=== PATIENT | female | born 2000 | race Caucasian/White ===

== ENCOUNTER 2019-06-18 18:45 | Emergency (ER) | payer MEDICAID, SELFPAY ==
[2019-06-18 18:46] VITALS: BP 159/88; PULSE 123; RESP 18; TEMP 36.7; O2SAT 98; BMI 20.5
--- NOTE | 2019-06-18 22:25 | ED_ITS ---
Entered by Krystal Schmidt, acting as scribe for Laure Fowler aDniela Jun 18, 2019 18:45 HPI - Abdominal Pain General: Chief Complaint: Abdominal Pain Stated Complaint: lower abd pain Time Seen by Provider: 06/18/19 22:09 Source: patient and family Mode of arrival: ambulatory History of Present Illness: HPI narrative: 19 y/o female presents to the ED with complaint of abd pain. She has had constant pain for about a week. She was seen by her PCP and was placed on abx. Her symptoms have not improved so her PCP sent her here for a CT. MD elicited complaint: abdominal pain Onset (ago): week(s) (1) Pain Consistency: constant Severity: moderate Associated Symptoms: Reports other (see HPI); Denies chills, dysuria, fever(s), hematuria and syncope Related Data: Date of Last Menstrual Period: 06/17/19 Review of Systems Const: Denies: fever, chills, body aches, fatigue, malaise or diaphoresis Eyes: Denies: change in vision or blurry vision ENMT: Denies: throat pain, painful swallowing, hoarseness, ear pain, ear discharge, Change in hearing or nasal discharge Card: Denies: chest pain, palpitations, irregular heart rhythm, syncope, pre- syncope, shortness of breath on exertion or shortness of breath when lying down Resp: Denies: shortness of breath, productive cough, non-productive cough, wheezing, coughing up blood or chest congestion GI: Reports: other (see HPI) : Denies: flank pain, painful urination, urinary frequency, urinary urgency, decreased urine ouput, urinary incontinence or blood in urine Musc: Denies: neck pain, back pain, extremity pain, extremity swelling, joint pain, joint swelling, joint warmth or joint stiffness Skin/Breast: Denies: rash, skin tenderness or yellow skin Neuro: Denies: headache, numbness in extremities, weakness in extremities, changes in sensation, lack of coordination, difficulty walking, dizziness, vertigo or confusion Endo: Denies: excessive thirst, tired all the time, cold intolerance, excessive sweating, flushing or hot flashes Samy/Lymph: Denies: easy bruising, easy bleeding, petechiae or enlarged lymph nodes All/Imm: Denies: hives, throat swelling, tongue swelling, facial swelling or acute wheezing PFSH ED PFSH: Statuses (acute, chronic, etc) shown below reflect problem list status as previously entered and may not be historically accurate Social History Smoking and tobacco status: current every day smoker Female Reproductive History: Date of last menstrual period: 06/17/19 Physical Exam Const: COMMON NORMALS: no apparent distress, oriented x3, no limitations, healthy appearing and well nourished EXAM LIMITATIONS: no altered mental status GENERAL APPEARANCE: cooperative, well kempt and well developed ORIENTATION/CONSCIOUSNESS: Yes awake HENMT: COMMON NORMALS: normocephalic, head/scalp atraumatic, hearing grossly normal bilaterally, external ears normal, EAC's normal, external nose normal and moist oral mucous membranes HEAD & SCALP: normal to inspection, normocephalic and atraumatic FACE & SINUS: normal facial exam and face symmetric NOSE: external nose normal and nares normal EXTERNAL EAR: Yes external ears normal EXTERNAL AUDITORY CANAL: EAC's normal MOUTH: oral and palatal mucosa normal and tongue normal Eye: COMMON NORMALS: PERRL, EOMs intact bilaterally, conjunctivae normal and no scleral icterus GENERAL EYE: normal appearance of both eyes and normal light reflex CONJUNCTIVA: Yes conjunctivae normal SCLERA: sclerae normal CORNEA: Yes corneas normal PUPIL: Yes PERRL DIRECT OPHTHALMOSCOPY: Yes normal light reflex Neck/C-Spine: COMMON NORMALS: full ROM, no lymphadenopathy, supple, no meningeal signs and no JVD GENERAL: Yes normal visual inspection and Yes trachea midline CERVICAL SPINE: Yes cervical ROM normal Chest: COMMONS NORMALS: inspection of chest normal and palpation of chest normal Resp: COMMON NORMALS: normal respiratory effort, no retractions, no use of accessory muscles and clear to auscultation bilaterally EFFORT & INSPECTION: Yes able to speak in complete sentences AUSCULTATION: clear to auscultation bilaterally Cardio: COMMON NORMALS: no JVD, regular rate, regular rhythm, S1 normal heart sound, S2 normal heart sound, no gallops, no clicks, no murmurs and no rub JUGULAR VENOUS DISTENTION: no JVD RATE: regular rate RHYTHM: regular rhythm HEART SOUNDS: S1 normal and S2 normal GI: COMMON NORMALS: normal to inspection, nondistended, normoactive bowel sounds, soft to palpation and non-tender PALPATION: Yes soft : COMMON NORMALS: Yes no CVA tenderness BLADDER/KIDNEY EXAM: Yes no CVA tenderness Back/Pelvis: COMMON NORMALS: no CVA tenderness, thoracic and lumbar spine normal to inspection, no thoracic nor lumbar tenderness and thoraco-lumbar ROM normal Extremity: COMMON NORMALS: normal to inspection, full ROM, normal capillary refill, no joint enlargement, no clubbing, cyanosis or edema and no calf tenderness Neuro: COMMON NORMALS: oriented x3, CN's II-XII intact bilaterally, moves all extremities, no focal motor deficits and no sensory deficits noted MENINGEAL SIGNS: Yes no meningeal signs Psych: COMMON NORMALS: mental status grossly normal, thought process normal, cooperative, affect normal, speech normal and activity/motor behavior normal APPEARANCE: Yes well kempt SPEECH: Yes normal speech THOUGHT PROCESS: normal thought process Skin: COMMON NORMALS: no rashes or lesions noted, skin turgor normal, no jaundice, no petechiae and no mottling GENERAL SKIN EXAM: no rashes or lesions noted and turgor normal Course Vital Signs: Vital signs: Vital Signs Temperature 98.3 F 06/19/19 02:12 Pulse Rate 82 06/19/19 02:12 Respiratory Rate 19 H 06/19/19 02:12 Blood Pressure 126/99 06/19/19 02:12 Pulse Oximetry 98 06/19/19 02:12 MDM - Abdominal Pain MDM Narrative: Medical decision making narrative: The patient is feeling better and is ready to go home. She is relieved to hear there is no acute findings on her CT. She does agree to return should her symptoms change or worsen and she will take the antibiotics as prescribed for possible UTI as her symptoms sound most like that. I see no sign of acute sinusitis, obstruction or any other acute catastrophe of the abdomen. The patient understands and agrees though to return should her symptoms worsen. Differential Diagnosis: Differential diagnosis abdominal pain: Likely abdominal pain, acute appendicitis, calculus of kidney, constipation, diverticulitis, endometriosis, gastroenteritis, pancreatitis and small bowel obstruction Lab Data: Attestation: I reviewed the patient's lab results. Labs: Lab Results 06/18/19 06/18/19 06/18/19 Range/Units 20:30 23:00 23:30 WBC 10.4 (4.5-13.0) 10^3/ uL RBC 4.46 (4.1-5.3) 10^6/u L Hgb 14.1 (11.5-15.3) g/dL Hct 41.0 (37.0-47.0) % MCV 91.9 (81-99) fL MCH 31.6 (28.0-34.0) pg MCHC 34.4 (30.0-36.0) g/dL RDW 11.9 L (12.1-15.1) % Plt Count 238 (130-400) 10^3/c mm MPV 10.6 H (7.4-10.4) fL Neut % (Auto) 49.6 % Lymph % (Auto) 41.0 % Calhoun % (Auto) 6.3 % Eos % (Auto) 2.2 % Baso % (Auto) 0.6 % Neut # (Auto) 5.2 (1.8-8.0) 10^3/u L Lymph # (Auto) 4.3 (1.5-6.5) 10^3/u L Calhoun # (Auto) 0.7 (0.2-0.9) 10^3/u L Eos # (Auto) 0.2 (0.0-0.8) 10^3/u L Baso # (Auto) 0.1 (0.0-0.1) 10^3/u L Nucleated RBC % (a uto) 0 % Nucleated RBCs # 0.0 /100WBC Sodium 140 (136-145) mmol/L Potassium 3.8 (3.5-5.1) mmol/L Chloride 103 (98-107) mmol/L Carbon Dioxide 23 (22-29) mmol/L Anion Gap 17.8 (5-19) BUN 12 (6-20) mg/dL Creatinine 0.7 (0.5-0.9) mg/dL GFR Calculation 106.7 (90-130) mL/min Glucose 100 (74-109) mg/dL Calcium 10.3 H (8.6-10.0) mg/Dl Total Bilirubin 0.2 (0.15-1.2) mg/dL AST 15 (0-32) U/L ALT 14 (0-33) U/L Alkaline Phosphata se 59 (35-105) IU/L Total Protein 6.8 (6.6-8.7) g/dL Albumin 4.6 (3.5-5.2) g/dL Globulin 2.2 (1.3-4.6) g/dL Lipase 50 (13-60) U/L Ser , Germaine i-Qnt 0.50 mIU/mL Urine Color Yellow (Yellow) Urine Appearance Sl cloudy A (CLEAR) Urine pH 7 (5-7) Ur Specific Gravit y 1.015 (1.005-1.030) Urine Protein Neg (Negative) Urine Glucose (UA) Norm (Normal) Urine Ketones Negative (Negative) Urine Occult Blood 3+ H (Negative) Urine Nitrate Negative (Negative) Urine Bilirubin Neg (NEGATIVE) Urine Urobilinogen Norm (Negative) mg/dL Ur Leukocyte Georgie ase Negative (Negative) Urine RBC 0-4 H (0-2) /hpf Urine WBC 0-4 H (0-5) /hpf Ur Squamous Epith Cells None (0-5) Urine Bacteria Trace (NONE) Imaging Data ^: CT Abd/Pel: Radiologist's impression: [place] [address] CT Scan Report Signed Patient: Janelle Beard Unit #: [id number] : 2000 Age/Sex: 19 / F ADM Date: 06/18/19 Loc: ER Room/Bed: Attending Dr: Ordering Provider/Ordering MD: Laure Fowler DO Date of Service: 06/18/19 Procedure(s): CT abdomen pelvis wo con [id number] Accession Number(s): [id number] Report Number: [id number] PROCEDURE INFORMATION: Exam: CT Abdomen And Pelvis Without Contrast Exam date and time: 06/18/2019 11:04 PM Age: 19 years old Clinical indication: Abdominal pain; Acute; Prior surgery; Surgery date: 6+ months; Surgery type: Renal stent TECHNIQUE: Imaging protocol: Computed tomography of the abdomen and pelvis without contrast. Total DLP: 489.95 mGy-cm Radiation optimization: All CT scans at this facility use at least one of these dose optimization techniques: automated exposure control; mA and/or kV adjustment per patient size (includes targeted exams where dose is matched to clinical indication); or iterative reconstruction. COMPARISON: CT Abdomen/Pelvis Renal [id number] 01/05/2018 1:41 AM FINDINGS: Lungs: The lung bases are clear. Liver: Unremarkable. Gallbladder and bile ducts: The gallbladder is partially contracted. No visible gallstones by CT. No biliary tree dilation. Pancreas: Unremarkable. Spleen: Unremarkable. Adrenals: Unremarkable. Kidneys and ureters: 3 or 4 very small left intrarenal calculi. Suspect a very small right intrarenal calculus. No hydronephrosis of either kidney. No visible ureteral calculus. No perinephric fluid. Stomach and bowel: The stomach appears somewhat distended at the time of scanning. Please correlate clinically. There are no CT findings to strongly suggest diverticulitis or colitis. Appendix: The appendix is visualized and appears normal. Intraperitoneal space: No free air, ascites, or bowel distention. Vasculature: No evidence for abdominal aortic aneurysm. Lymph nodes: No retroperitoneal adenopathy. Bladder: Unremarkable as visualized. Reproductive: Essentially unremarkable for age. Bones/joints: No significant acute finding. Soft tissues: No significant acute finding. CT/CT abdomen pelvis wo con [id number] IMPRESSION: 1. Bilateral intrarenal calculi. No hydronephrosis or visible ureteral calculus. 2. Normal appendix. 3. Somewhat distended stomach. 4. No free air or bowel distention. 5. Other findings discussed above. Radiation Dose CTDIVOL = (mGy): DLP = 489.95 (mGy-cm) Dictated By: Fernando Mcmanus MD Signed By: Fernando Mcmanus MD Signed Date/Time: 1999 DD/ Discharge Plan Discharge Patient Disposition: Home, Self-Care Clinical Impression: Abdominal pain Qualifiers: Abdominal location: generalized Qualified Code(s): R10.84 - Generalized abdominal pain UTI (urinary tract infection) Qualifiers: Urinary tract infection type: site unspecified Hematuria presence: without hematuria Qualified Code(s): N39.0 - Urinary tract infection, site not specified Condition: Stable Prescriptions: New Cipro 500 mg tablet 500 mg PO BID Qty: 20 RF: 0 No Action ProAir HFA 90 mcg/actuation Hfa Aerosol Inhaler 1 inh INHALATION QID PRN (Reason: Shortness Of Breath) RF: 0 Control PO DAILY RF: 0 Discharge Orders: Discharge Order (Routine); Ordered 06/19/19 Ordered By: Laure Fowler Referrals: Daniel Eden MD [Primary Care Provider] - 1-3 days Discharge Diet: Advance as tolerated Discharge Activity: Increase activity as tolerated Patient Instructions: Abdominal Pain (ED) Activity Restrictions/Additional Instructions: Please return to the ER immediately for any of the signs or symptoms listed on your discharge instruction sheets, worsening/changing of your symptoms, you are not getting better as quickly as expected, or for ANY other cause or concerns. Return to the ER for increased pain, fever, vomiting, or for any other cause for concern. Stand Alone Forms: Work/School Release Discharge Date/Time: 06/19/19 02:14 Coding Level of Care Code ED Warehouse Technician for Chg Fwd Exam Problem Focused The documentation recorded by the shaneibBrayan masters Ashley, accurately reflects the service I personally performed and the decisions made by Janeth palacios Eli N Jun 18, 2019 18:45
--- NOTE | 2019-06-18 23:03 | CTR_ITS ---
PROCEDURE INFORMATION: Exam: CT Abdomen And Pelvis Without Contrast Exam date and time: 06/18/2019 11:04 PM Age: 19 years old Clinical indication: Abdominal pain; Acute; Prior surgery; Surgery date: 6+ months; Surgery type: Renal stent TECHNIQUE: Imaging protocol: Computed tomography of the abdomen and pelvis without contrast. Total DLP: 489.95 mGy-cm Radiation optimization: All CT scans at this facility use at least one of these dose optimization techniques: automated exposure control; mA and/or kV adjustment per patient size (includes targeted exams where dose is matched to clinical indication); or iterative reconstruction. COMPARISON: CT Abdomen/Pelvis Renal [id number] 01/05/2018 1:41 AM FINDINGS: Lungs: The lung bases are clear. Liver: Unremarkable. Gallbladder and bile ducts: The gallbladder is partially contracted. No visible gallstones by CT. No biliary tree dilation. Pancreas: Unremarkable. Spleen: Unremarkable. Adrenals: Unremarkable. Kidneys and ureters: 3 or 4 very small left intrarenal calculi. Suspect a very small right intrarenal calculus. No hydronephrosis of either kidney. No visible ureteral calculus. No perinephric fluid. Stomach and bowel: The stomach appears somewhat distended at the time of scanning. Please correlate clinically. There are no CT findings to strongly suggest diverticulitis or colitis. Appendix: The appendix is visualized and appears normal. Intraperitoneal space: No free air, ascites, or bowel distention. Vasculature: No evidence for abdominal aortic aneurysm. Lymph nodes: No retroperitoneal adenopathy. Bladder: Unremarkable as visualized. Reproductive: Essentially unremarkable for age. Bones/joints: No significant acute finding. Soft tissues: No significant acute finding. CT/CT abdomen pelvis wo con [id number] IMPRESSION: 1. Bilateral intrarenal calculi. No hydronephrosis or visible ureteral calculus. 2. Normal appendix. 3. Somewhat distended stomach. 4. No free air or bowel distention. 5. Other findings discussed above. Radiation Dose CTDIVOL = (mGy): DLP = 489.95 (mGy-cm)
[2019-06-18] MEDS: sodium chloride 0.9% 1,000 ML 999 ML IV (23:30)
[2019-06-18 23:33] LABS: Basophils # 0.1 10^3/uL (0.0-0.1); Basophils % 0.6 %; Eosinophils # 0.2 10^3/uL (0.0-0.8); Eosinophils % 2.2 %; Hemoglobin 14.1 g/dL (11.5-15.3); Lymphocytes # 4.3 10^3/uL (1.5-6.5); Mean Corpuscular HGB Conc 34.4 g/dL (30.0-36.0); Mean Corpuscular Hemoglobin 31.6 pg (28.0-34.0); Mean Corpuscular Volume 91.9 fL (81-99); Mean Platelet Volume 10.6 fL (7.4-10.4); Monocytes # 0.7 10^3/uL (0.2-0.9); Monocytes % 6.3 %; Neutrophils # 5.2 10^3/uL (1.8-8.0); Neutrophils % 49.6 %; Nucleated Red Blood Cells % 0 %; Platelet Count 238 10^3/cmm (130-400); Red Blood Count 4.46 10^6/uL (4.1-5.3); Red Cell Distribution Width 11.9 % (12.1-15.1); White Blood Count 10.4 10^3/uL (4.5-13.0)
[2019-06-18 23:34] LABS: Bilirubin Urine Neg (NEGATIVE); Blood Urine 3+ (Negative); Glucose Urine UA Norm (Normal); Ketones Urine Negative (Negative); Leukocyte Esterase Urine Negative (Negative); Nitrate Urine Negative (Negative); Protein Urine Neg (Negative); RBC Urine 0-4 /hpf (0-2); Specific Gravity, Urine 1.015 (1.005-1.030); Urine Color Yellow (Yellow); Urobilinogen Urine Norm (Negative); WBC Urine 0-4 /hpf (0-5); pH Urine 7 (5-7)
[2019-06-18 23:35] LABS: Add Urine Culture? No; Bacteria Urine TRACE
[2019-06-19 00:04] LABS: Alanine Aminotransferase 14 U/L (0-33); Albumin Level 4.6 g/dL (3.5-5.2); Alkaline Phosphatase 59 IU/L (35-105); Anion Gap 17.8 (5-19); Aspartate Amino Transferase 15 U/L (0-32); Blood Urea Nitrogen 12 mg/dL (6-20); Calcium 10.3 mg/Dl (8.6-10.0); Carbon Dioxide 23 mmol/L (22-29); Chloride 103 mmol/L (98-107); Globulin 2.2 g/dL (1.3-4.6); Glomerular Filtration Rate 106.7 mL/min (90-130); Glucose 100 mg/dL (74-109); Lipase 50 U/L (13-60); Potassium 3.8 mmol/L (3.5-5.1); Sodium 140 mmol/L (136-145); Total Bilirubin 0.2 mg/dL (0.15-1.2); Total Protein 6.8 g/dL (6.6-8.7)
[2019-06-19 02:12] VITALS: BP 126/99; PULSE 82; RESP 19; TEMP 36.8; O2SAT 98
== END 2019-06-19 02:14 | disposition home or self-care (01) ==
PROVIDERS: Emergency Provider Emergency Medicine; Family Provider Family Medicine; PCP Family Medicine
DX: N39.0 Urinary tract infection, site not specified (principal); F17.210 Nicotine dependence, cigarettes, uncomplicated
CPT/HCPCS: 74176; 80053; 81001; 83690; 84702; 85025; 96360; 99281; J7030

== ENCOUNTER 2019-07-03 11:22 | Outpatient (CLI) | payer MEDICAID, SELFPAY ==
--- NOTE | 2019-07-03 | US_ITS ---
WS: [id number] Pelvic ultrasound, 07/03/2019 Clinical Data: PELVIC PAIN IN FEMALE Comparison: None. Findings: The uterus measures 7.0 cm x 3.4 cm x 4.18cm. The endometrium is 2.1 cm. No intrauterine or abnormal intrauterine mass is seen. The cervical length is 2.7 cm. The left ovary measures 1.6 cm x 2.40 cm x 2.49 cm with no cysts or masses. The right ovary measures 3.5 cm x 3.84 cm x 2.77 cm with a simple cyst measuring 1.9 x 2.0 x 2.7 cm. There is a small amount of fluid in the cul-de-sac. US/US pelvic complete* [id number] Impression: Negative pelvic ultrasound.
== END 2019-07-03 11:23 | disposition home or self-care (01) ==
LOC: RADOUTREAD 12:20
PROVIDERS: Family Provider Family Medicine; PCP Family Medicine; Visit Provider Family Medicine
DX: Z76.89 Persons encountering health services in other specified circumstances (principal)

== ENCOUNTER 2020-02-19 14:23 | Emergency (ER) | payer MEDICAID, SELFPAY ==
[2020-02-19 14:25] VITALS: BP 173/100; PULSE 100; RESP 18; TEMP 36.4; O2SAT 98; BMI 23.0
--- NOTE | 2020-02-19 14:33 | W.ED.GENADLT ---
HPI - General Adult General: Chief complaint: General Medical Stated complaint: not feeling well Time Seen by Provider: 02/19/20 14:25 Source: patient Mode of arrival: ambulatory Limitations: no limitations History of Present Illness: HPI narrative: Patient is a 19-year-old female who presents to ED today with a rather confusing history. Patient tells me approximately 3 months ago she began taking Chantix in hopes she could quit smoking. Patient tells me she continued smoking up until approximately 14 days ago. Patient tells me she stopped taking Chantix 3 days ago. She tells me she has had symptoms of anxiety, feeling like her heart is racing, and nausea since starting the Chantix. She tells me she will drink coffee and that seems to settle her down . She complains of decreased sleep. She tells me she will also self medicate with marijuana. Patient states Dr. Eden has her on citalopram for her anxiety. She reports she had been taking this as prescribed but states the Chantix made her think it was a devil pill so began taking it intermittently. Patient on exam has pressured disorganized speech. She often contradicts herself. Patient tells me she does not want any form of work-up today. She refuses lab work, EKG, or imaging. It is hard to pin down her main complaint but ultimately she tells me she wants help for her anxiety. Onset (ago): day(s) Associated symptoms: Reports palpitations; Deny chest pain, confusion, dyspnea, headache(s), malaise, nausea, rash, syncope or vomiting Review of Systems Const: Denies: fever(s), chills, body aches, fatigue or malaise Eyes: Denies: change in vision, blurry vision, photophobia, floaters or seeing flashes ENMT: Denies: throat pain or odynophagia Card: Reports: palpitations; Denies: chest pain, irregular heart rhythm, edema, swelling of feet/ankles, lightheadedness, syncope, pre-syncope, dyspnea on exertion, orthopnea, leg pain with exertion or acrocyanosis Resp: Denies: dyspnea, productive cough, non-productive cough, wheezing, pain on inspiration, hemoptysis or chest congestion GI: Denies: abdominal pain, nausea, vomiting, heartburn or diarrhea : Denies: flank pain, difficulty voiding, dysuria, urinary frequency, urinary urgency or urinary hesitancy Musc: Denies: neck pain, back pain, extremity pain, extremity swelling, joint pain or joint swelling Skin/Breast: Denies: rash Neuro: Denies: headache(s), numbness in extremities, weakness in extremities, sensory changes, lack of coordination, difficulty walking, dizziness, vertigo or confusion Psych: Reports: anxiety; Denies: depression, hopelessness, visual hallucinations, auditory hallucinations, suicidal ideation or homicidal ideation PFS ED PFSH: Medical History (Updated 02/19/20 @ 14:59 by ARIELLE Nielsen) Asthma History of kidney stones Surgical History History of section, low transverse (01/31/17) Dx: Breech. Dr. Joseph at [facility] History of kidney surgery stent for kidney stone Family History Father Hypertension Family/Other Hypertension paternal uncle Grandfather Hypertension paternal Social History Smoking and tobacco status: current every day smoker cigarettes Packs smoked per day: 1 Years cigarettes smoked: 2 Alcohol intake: never Female Reproductive History: Date of last menstrual period: 06/17/19 Physical Exam Const: COMMON NORMALS: no acute distress, average body habitus, patient oriented x3, no limitations, healthy appearing, alert and well nourished ORIENTATION/CONSCIOUSNESS: Yes oriented to person, Yes oriented to place and Yes oriented to time Resp: COMMON NORMALS: normal respiratory effort and clear to auscultation bilaterally AUSCULTATION: clear to auscultation bilaterally Cardio: COMMON NORMALS: regular rate and regular rhythm RATE: regular rate RHYTHM: regular rhythm Neuro: MIGUEL COMA SCALE: document GCS findings Miguel coma scale eye opening: Spontaneous Larue coma scale verbal response: Orientated Larue coma scale motor response: Obey commands Larue coma scale total score: 15 COMMON NORMALS: patient oriented x3 and gait normal SENSORIUM/ORIENTATION: Yes alert, Yes oriented to person, Yes oriented to place and Yes oriented to time Psych: COMMON NORMALS: mental status grossly normal, cooperative, activity/motor behavior normal, denies hallucinations, denies homicidal ideation and denies suicidal ideation APPEARANCE: Yes grossly normal ACTIVITY/MOTOR BEHAVIOR: Yes appropriate eye contact and Yes hyperactivity SPEECH: Yes excessive and Yes Pressured speech present MOOD & AFFECT: Yes euthymic mood THOUGHT PROCESS: disorganized THOUGHT CONTENT: Yes Normal thought content present ATTENTION/CONCENTRATION: Yes attention grossly intact and Yes concentration grossly intact MEMORY/COGNITION: Yes memory grossly intact and Yes cognition grossly intact INSIGHT: Fair insight present (Psych) JUDGEMENT: Fair judgement present (Psych) Skin: COMMON NORMALS: no rashes or lesions noted GENERAL SKIN EXAM: no rashes or lesions noted Course Vital Signs: Vital signs: Vital Signs Temperature 97.5 F L 02/19/20 14:25 Pulse Rate 100 02/19/20 14:25 Respiratory Rate 18 02/19/20 14:25 Blood Pressure 173/100 02/19/20 14:25 Pulse Oximetry 98 02/19/20 14:25 MDM - General Adult MDM Narrative: Medical decision making narrative: Patient again refusing lab work, EKG, CXR, or any other kind of imaging at this time. Patient's vitals are stable apart from hypertension. Patient tells me she has no history of this. She does not want treatment for this. She does not seem concerned about this. I did encourage her to follow-up with Dr. Eden regarding this. I did speak to her about going to [facility] [place] for an intake exam and possibly speaking to a psychiatrist however patient tells me that I am my own psychiatrist and does not wish to pursue this route. She is not suicidal or homicidal. I have no grounds to keep patient on a hold. She is open to trying Vistaril for anxiety. Again recommend she follow-up with primary care as soon as possible. She may also return to the emergency department at any point for re-examination. Discharge Plan Discharge Patient Disposition: Home Clinical Impression: Anxiety Condition: Stable Prescriptions: New Vistaril 50 mg capsule 50 mg PO TID PRN (Reason: anxiety) Qty: 30 RF: 0 No Action Chantix Starting Month Box 0.5 mg (11)- 1 mg (42) tablets,dose pack See Rx Instructions PO PER PKG DIR RF: 0 citalopram 10 mg tablet 10 mg PO DAILY RF: 0 fluconazole 150 mg tablet 150 mg PO DAILY Qty: 1 RF: 0 norethindrone ac-eth estradiol [June06/16 (21)] 1-20 mg-mcg tablet See Rx Instructions PO DAILY Qty: 63 RF: 4 ProAir HFA 90 mcg/actuation Hfa Aerosol Inhaler 1 inh INHALATION QID PRN (Reason: Shortness Of Breath) RF: 0 Discharge Orders: Discharge Order (Routine); Ordered 02/19/20 Ordered By: Daniella Barbour Referrals: Daniel Eden MD [Primary Care Provider] - Patient Instructions: Generalized Anxiety Disorder (ED), Anxiety (ED) Activity Restrictions/Additional Instructions: Please follow up with Dr. Eden as needed. As we discussed, you can go to [facility] [place] for an intake screening exam and they can set you up with outpatient resources such as a counselor, therapist, or psychiatrist. Discharge Date/Time: 02/19/20 15:12 Coding Level of Care Code ED Golf Ball Marker for Chg Fwd Exam Detailed
== END 2020-02-19 15:12 | disposition home or self-care (01) ==
PROVIDERS: Emergency Provider Physician Assistant; PCP Family Medicine
DX: F41.9 Anxiety disorder, unspecified (principal); F17.210 Nicotine dependence, cigarettes, uncomplicated
CPT/HCPCS: 12345; 99281; 99282

== ENCOUNTER 2020-08-24 12:03 | Emergency (ER) | payer MEDICAID, SELFPAY ==
--- NOTE | 2020-08-24 12:10 | ED_ITS ---
HPI - Extremity Problem General: Chief complaint: Skin/Abscess/Foreign Body Stated complaint: KNOT UNDER 2ND TOE ON L FOOT Time Seen by Provider: 08/24/20 12:06 Source: patient Mode of arrival: ambulatory Limitations: no limitations History of Present Illness: HPI Narrative: Patient is a 20-year-old female who presents to ED today with complaint of a painful lesion to the bottom of her left foot that she has noticed over the past week. MD Complaint: extremity pain Pain Consistency: constant Location: left and lower extremity Quality: sharp Radiation: none Relieving factors: immobilization Exacerbating factors: weight bearing Associated symptoms: Reports no associated symptoms Review of Systems Musc: Reports: extremity pain (L foot) Skin/Breast: Reports: new lesions Neuro: Denies: numbness in extremities or sensory changes PFSH ED PFSH: Medical History (Updated 08/24/20 @ 12:56 by ARIELLE Nielsen) Asthma History of kidney stones Surgical History History of section, low transverse (01/31/17) Dx: Breech. Dr. Joseph at [facility] History of kidney surgery stent for kidney stone Family History Father Hypertension Family/Other Hypertension paternal uncle Grandfather Hypertension paternal Social History Smoking and tobacco status: current every day smoker cigarettes Packs smoked per day: 1 Years cigarettes smoked: 2 Alcohol intake: never Female Reproductive History: Date of last menstrual period: 06/17/19 Physical Exam Const: COMMON NORMALS: no acute distress, patient oriented x3, no limitations and alert Extremity: NARRATIVE EXTREMITY EXAM: pt has a very small indurated lesion to distal plantar foot with a central pustule-lesion is not erythematous; tender to touch; suspicious for possible fb/developing abscess Neuro: COMMON NORMALS: patient oriented x3 SENSORIUM/ORIENTATION: Yes alert Skin: COMMON NORMALS: no rashes or lesions noted NARRATIVE SKIN EXAM: see extremity assessment; otherwise normal skin exam GENERAL SKIN EXAM: no rashes or lesions noted TRAUMA: no lacerations or abrasions Procedures Abscess I/D Site: foot Side (if applicable): left Local Anesthetic: lidocaine 1% and with epi Amount of anesthesia used (mL): 1.0 Amount of fluid expressed (mL): 0.5 Packing used?: none Complications: other (no fb visualized or palpated; small amount of purulent material drained; very shallow) Course Vital Signs: Vital signs: Vital Signs Temperature 97.7 F 08/24/20 12:12 Pulse Rate 113 H 08/24/20 12:16 Respiratory Rate 16 08/24/20 12:16 Blood Pressure 140/86 08/24/20 12:16 Pulse Oximetry 98 08/24/20 12:16 MDM - Extremity (Nontraumatic) Imaging Data^: XR L foot: Radiologist's impression: [address] [address] XRay Report Signed Patient: Janelle Beard Unit #: [id number] : 2000 Age/Sex: 20 / F ADM Date: 08/24/20 Loc: ER Room/Bed: Attending Dr: Ordering Provider/Ordering MD: Daniella Barbour Date of Service: 08/24/20 Procedure(s): XR foot LT min 3V* [id number] Accession Number(s): [id number] Report Number: [id number] PROCEDURE INFORMATION: Exam: XR Left Foot Exam date and time: 08/24/2020 12:19 PM Age: 20 years old Clinical indication: Other: Knot under 2nd and 3rd toe; Additional info: Poss fb; Distal plantar TECHNIQUE: Imaging protocol: XR Left foot. Views: 3 or more views. COMPARISON: No relevant prior studies available. FINDINGS: Bones/joints: Negative for acute bony abnormality. The 2nd and 3rd toe do not show focal abnormality. Soft tissues: unremarkable. negative for radiodense soft tissue foreign body XR/XR foot LT min 3V* [id number] IMPRESSION: No acute findings. Dictated By: Homero Price Signed By: Homero Price Signed Date/Time: 08/24/20 1312 DD/ 1311 Discharge Plan Discharge Patient Disposition: Home Clinical Impression: Abscess of left foot Condition: Stable Prescriptions: New Bactrim DS 800-160 mg tablet 1 tab PO BID 7 Days Qty: 14 RF: 0 No Action Chantix Starting Month Box 0.5 mg (11)- 1 mg (42) tablets,dose pack See Rx Instructions PO PER PKG DIR RF: 0 citalopram 10 mg tablet 10 mg PO DAILY RF: 0 fluconazole 150 mg tablet 150 mg PO DAILY Qty: 1 RF: 0 norethindrone ac-eth estradiol [06/16 (21)] 1-20 mg-mcg tablet See Rx Instructions PO DAILY Qty: 63 RF: 4 Vistaril 50 mg capsule 50 mg PO TID PRN (Reason: anxiety) Qty: 30 RF: 0 ProAir HFA 90 mcg/actuation Hfa Aerosol Inhaler 1 inh INHALATION QID PRN (Reason: Shortness Of Breath) RF: 0 Discharge Orders: Discharge ED (Routine); Ordered 08/24/20 Ordered By: Daniella Barbour Referrals: Daniel Eden MD [Primary Care Provider] - Activity Restrictions/Additional Instructions: As we discussed use warm salt water/Epson salt soaks as much as possible. Begin your antibiotics immediately. Monitor for signs of infection such as redness, worsening pain, worsening swelling, purulent discharge, fevers, redness to your foot, redness streaking up your leg, or any other concerns you may have. Coding Level of Care Code ED Manager Of Digital for Loida Schwartz
[2020-08-24 12:12] VITALS: BP 140/86; PULSE 119; RESP 16; TEMP 36.5; O2SAT 97; BMI 26.5
[2020-08-24 12:16] VITALS: BP 140/86; PULSE 113; RESP 16; O2SAT 98
--- NOTE | 2020-08-24 12:16 | XRR_ITS ---
PROCEDURE INFORMATION: Exam: XR Left Foot Exam date and time: 08/24/2020 12:19 PM Age: 20 years old Clinical indication: Other: Knot under 2nd and 3rd toe; Additional info: Poss fb; Distal plantar TECHNIQUE: Imaging protocol: XR Left foot. Views: 3 or more views. COMPARISON: No relevant prior studies available. FINDINGS: Bones/joints: Negative for acute bony abnormality. The 2nd and 3rd toe do not show focal abnormality. Soft tissues: unremarkable. negative for radiodense soft tissue foreign body XR/XR foot LT min 3V* [id number] IMPRESSION: No acute findings.
== END 2020-08-24 13:04 | disposition home or self-care (01) ==
PROVIDERS: Emergency Provider Physician Assistant; PCP Family Medicine
DX: L02.612 Cutaneous abscess of left foot (principal); F17.210 Nicotine dependence, cigarettes, uncomplicated
CPT/HCPCS: 10060; 73630; 99282

== ENCOUNTER 2020-11-02 15:33 | Emergency (ER) | payer MEDICAID, SELFPAY ==
[2020-11-02 15:55] VITALS: BP 160/88; PULSE 82; RESP 16; TEMP 36.8; O2SAT 97; BMI 26.9
--- NOTE | 2020-11-02 16:29 | USR_ITS ---
PROCEDURE INFORMATION: Exam: US Nonobstetric Pelvis; Complete Exam date and time: 11/02/2020 4:34 PM Age: 20 years old Clinical indication: Other: Lower abd; Patient HX: Pain x's 2 wks was on antibiotics didn; T help, PT has HX of kidney stones; Additional info: Pelvic pain TECHNIQUE: Imaging protocol: Transabdominal pelvic nonobstetric ultrasound. Complete exam. Real time ultrasound with image documentation. Total images: 44 COMPARISON: US pelvic complete* [id number] 07/03/2019 11:22 AM FINDINGS: Uterus/cervix: Uterus is normal. Endometrial stripe is normal measuring 5 mm. Normal appearing transition zone. No visible free endometrial fluid. Uterine dimensions are approximately 8.3 cm x 3.8 cm x 4 cm. Right adnexa: Ovary is normal. No mass. Normal blood flow. Right ovary dimensions approximately 2.4 cm x 1.9 cm x 2 cm. No visible right adnexal mass or cystic structure. Left adnexa: Ovary is normal. No mass. Normal blood flow. Left ovary dimensions approximately 2.2 cm x 1.4 cm x 1.9 cm. No visible left adnexal mass or cystic structure. Intraperitoneal space: No intraperitoneal fluid. Urinary bladder: Normal. US/US pelvic complete* [id number] IMPRESSION: No acute findings.
--- NOTE | 2020-11-02 16:30 | W.ED.ABDPA2 ---
HPI - Abdominal Pain General: Chief Complaint: Abdominal Pain Stated Complaint: lower abd pain/poison jerri Time Seen by Provider: 11/02/20 16:26 History of Present Illness: HPI narrative: This patient is a 20-year-old female who presents to the emergency department plaint of bilateral lower adnexal pain. Patient states she was recently seen on the fourth by her PCP and he thought she might have a mild urinary tract infection is gave her an antibiotic. Patient states the pain is becoming negative more consistent. Patient denies fever denies nausea vomiting diarrhea. Patient states last menstrual period was 2 weeks ago. Will do medical evaluation treat as needed MD elicited complaint: abdominal pain Onset (ago): day(s) Pain Consistency: constant Location: RLQ, LLQ and Pelvis Severity: moderate Quality: aching and sharp Radiation: none Exacerbating factors: nothing Associated Symptoms: Denies chills, dysuria, fever(s), nausea and vomiting Related Data: Date of Last Menstrual Period: 10/19/20 Review of Systems General: Reports: 10 or more systems reviewed and unremarkable except in HPI and below Const: Denies: fever(s), chills, body aches or fatigue Eyes: Denies: change in vision or blurry vision ENMT: Denies: throat pain, hoarseness or mouth pain Card: Denies: chest pain, palpitations, irregular heart rhythm, edema, swelling of feet/ankles or lightheadedness Resp: Denies: dyspnea, productive cough, non-productive cough, wheezing or pain on inspiration GI: Reports: abdominal pain; Denies: nausea or vomiting : Reports: pelvic pain; Denies: flank pain, difficulty voiding, dysuria, urinary frequency, urinary urgency, urinary hesitancy, vaginal discharge, dysmenorrhea or irregular period Musc: Denies: neck pain, back pain, extremity pain, extremity swelling, joint pain, joint swelling, joint redness, joint warmth or limited range of motion Skin/Breast: Denies: rash, pruritus, erythema or skin tenderness Neuro: Denies: headache(s), numbness in extremities or weakness in extremities Psych: Denies: anxiety or depression [facility] ED PFSH: Medical History (Updated 11/02/20 @ 18:15 by Luis Fernando Boland MD) Asthma History of kidney stones Surgical History History of section, low transverse (01/31/17) Dx: Breech. Dr. Joseph at [facility] History of kidney surgery stent for kidney stone Family History Father Hypertension Family/Other Hypertension paternal uncle Grandfather Hypertension paternal Social History Smoking and tobacco status: current every day smoker cigarettes Packs smoked per day: 1 Years cigarettes smoked: 2 Alcohol intake: never Female Reproductive History: Date of last menstrual period: 10/19/20 Physical Exam Const: COMMON NORMALS: no acute distress, average body habitus, patient oriented x3, no limitations, healthy appearing, alert and well nourished HENMT: COMMON NORMALS: normocephalic, atraumatic, hearing grossly normal bilaterally, external ears normal, EAC's normal, TM's normal bilaterally, Normal external nose present, Normal nasal mucous membranes and turbinates present, moist oral mucous membranes, oropharynx normal, dentition normal and gingiva normal HEAD & SCALP: normocephalic and atraumatic NOSE: Normal external nose present and Normal nasal mucous membranes and turbinates present EXTERNAL EAR: Yes external ears normal EXTERNAL AUDITORY CANAL: EAC's normal TYMPANIC MEMBRANE: TM's normal bilaterally Neck/C-Spine: COMMON NORMALS: full ROM, no lymphadenopathy, supple, no meningeal signs, no JVD, Thyroid normal and No carotid bruits THYROID: Thyroid normal Chest: COMMONS NORMALS: normal inspection of the chest, normal palpation of entire chest wall, normal inspection of the breasts and normal palpation of the breasts Breast/axilla inspection: Yes normal inspection of the breasts BREAST/AXILLA PALPATION: Yes normal palpation of the breasts Resp: COMMON NORMALS: normal respiratory effort, No retractions, No use of accessory muscles, clear to auscultation bilaterally and percussion normal AUSCULTATION: clear to auscultation bilaterally PERCUSSION: percussion normal Cardio: COMMON NORMALS: no JVD, regular rate, regular rhythm, S1 normal heart sound present, S2 normal heart sound present, No gallops present (Cardio), No clicks present (Cardio), No murmurs present (Cardio), No rub (Cardio) and Peripheral pulses 2+ throughout RATE: regular rate RHYTHM: regular rhythm HEART SOUNDS: S1 normal heart sound present and S2 normal heart sound present PERIPHERAL PULSES: Peripheral pulses 2+ throughout GI: COMMON NORMALS: Normal to inspection, nondistended, normoactive bowel sounds present, Soft to palpation, non-tender, No hepatosplenomegaly present, no masses and no bruits PALPATION: Yes Soft to palpation and Yes No hepatosplenomegaly present : COMMON NORMALS: Yes no CVA tenderness BLADDER/KIDNEY EXAM: Yes no CVA tenderness Back/Pelvis: COMMON NORMALS: no CVA tenderness, thoracic and lumbar spine normal to inspection, no thoracic nor lumbar tenderness, thoraco-lumbar ROM normal and straight leg raise negative bilaterally Extremity: COMMON NORMALS: normal to inspection, full ROM, capillary refill normal, no joint enlargement, no clubbing, cyanosis or edema, no calf tenderness and no pedal edema Neuro: COMMON NORMALS: patient oriented x3 SENSORIUM/ORIENTATION: Yes alert MENINGEAL SIGNS: Yes no meningeal signs Course Vital Signs: Vital signs: Vital Signs Temperature 98.2 F 11/02/20 15:55 Pulse Rate 82 11/02/20 15:55 Respiratory Rate 16 11/02/20 15:55 Blood Pressure 160/88 11/02/20 15:55 Pulse Oximetry 97 11/02/20 15:55 MDM - Abdominal Pain MDM Narrative: Medical decision making narrative: This patient is a 20-year-old female who presents to the emergency department plaint of bilateral lower adnexal pain. Patient states she was recently seen on the fourth by her PCP and he thought she might have a mild urinary tract infection is gave her an antibiotic. Patient states the pain is becoming negative more consistent. Patient denies fever denies nausea vomiting diarrhea. Patient states last menstrual period was 2 weeks ago. Negative evaluation in the emergency department. Negative CT scan negative ultrasound negative labs. Patient is to continue all home medications. Patient be discharged home. Differential Diagnosis: Differential diagnosis abdominal pain: Likely abdominal pain, acute appendicitis and endometriosis Medical Records: Attestation: I reviewed the patient's medical records. Lab Data: Attestation: I reviewed the patient's lab results. Labs: Lab Results 11/02/20 11/02/20 11/02/20 Range/Units 17:04 17:04 17:40 WBC 7.6 (4.0-10.0) 10^3/ uL RBC 3.96 L (4.1-5.3) 10^6/u L Hgb 12.6 (11.5-15.3) g/dL Hct 36.1 L (37.0-47.0) % MCV 91.2 (81-99) fL MCH 31.8 (28.0-34.0) pg MCHC 34.9 (30.0-36.0) g/dL RDW 11.6 L (12.1-15.1) % Plt Count 199 (130-400) 10^3/c mm MPV 11.3 H (7.4-10.4) fL Neut % (Auto) 53.9 % Lymph % (Auto) 36.4 % [place] % (Auto) 7.3 % Eos % (Auto) 1.5 % Baso % (Auto) 0.8 % Neut # (Auto) 4.07 (1.8-7.7) 10^3/u L Lymph # (Auto) 2.8 (0.8-4.8) 10^3/u L [place] # (Auto) 0.6 (0.2-0.9) 10^3/u L Eos # (Auto) 0.1 (0.0-0.8) 10^3/u L Baso # (Auto) 0.1 (0.0-0.1) 10^3/u L Nucleated RBC % (a uto) 0 % Nucleated RBCs # 0.0 /100WBC Potassium (3.5-5.1) mmol/L Chloride (98-107) mmol/L Anion Gap (5-19) BUN (6-20) mg/dL Creatinine (0.5-0.9) mg/dL GFR Calculation (90-130) mL/min Glucose (65-115) mg/dL Total Bilirubin (0.15-1.2) mg/dL AST (0-32) U/L ALT (0-33) U/L Alkaline Phosphata se (35-105) IU/L Total Protein (6.6-8.7) g/dL Albumin (3.5-5.2) g/dL Globulin (1.3-4.6) g/dL HCG, Qual Negative (Negative) Urine Color Yellow (Yellow) Urine Appearance Clear (CLEAR) Urine pH 5 (5-7) Ur Specific Gravit y 1.015 (1.005-1.030) Urine Protein Neg (Negative) Urine Glucose (UA) Norm (Normal) Urine Ketones 1+ H (Negative) Urine Blood Neg (Negative) Urine Nitrate Negative (Negative) Urine Bilirubin Neg (Negative) Urine Urobilinogen Norm (Negative) mg/dL Ur Leukocyte Georgie ase Negative (Negative) 11/02/20 Range/Units 17:40 WBC (4.0-10.0) 10^3/ uL RBC (4.1-5.3) 10^6/u L Hgb (11.5-15.3) g/dL Hct (37.0-47.0) % MCV (81-99) fL MCH (28.0-34.0) pg MCHC (30.0-36.0) g/dL RDW (12.1-15.1) % Plt Count (130-400) 10^3/c mm MPV (7.4-10.4) fL Neut % (Auto) % Lymph % (Auto) % Windsor % (Auto) % Eos % (Auto) % Baso % (Auto) % Neut # (Auto) (1.8-7.7) 10^3/u L Lymph # (Auto) (0.8-4.8) 10^3/u L [place] # (Auto) (0.2-0.9) 10^3/u L Eos # (Auto) (0.0-0.8) 10^3/u L Baso # (Auto) (0.0-0.1) 10^3/u L Nucleated RBC % (a uto) % Nucleated RBCs # /100WBC Potassium 3.8 (3.5-5.1) mmol/L Chloride 101 (98-107) mmol/L Anion Gap 15.8 (5-19) BUN 8 (6-20) mg/dL Creatinine 0.6 (0.5-0.9) mg/dL GFR Calculation 126.2 (90-130) mL/min Glucose 82 (65-115) mg/dL Total Bilirubin 0.3 (0.15-1.2) mg/dL AST 19 (0-32) U/L ALT 14 (0-33) U/L Alkaline Phosphata se 52 (35-105) IU/L Total Protein 6.8 (6.6-8.7) g/dL Albumin 4.0 (3.5-5.2) g/dL Globulin 2.8 (1.3-4.6) g/dL HCG, Qual (Negative) Urine Color (Yellow) Urine Appearance (CLEAR) Urine pH (5-7) Ur Specific Gravit y (1.005-1.030) Urine Protein (Negative) Urine Glucose (UA) (Normal) Urine Ketones (Negative) Urine Blood (Negative) Urine Nitrate (Negative) Urine Bilirubin (Negative) Urine Urobilinogen (Negative) mg/dL Ur Leukocyte Georgie ase (Negative) Imaging Data ^: US: Attestation: I personally reviewed and interpreted this imaging study as follows: Radiologist's impression: FINDINGS: Uterus/cervix: Uterus is normal. Endometrial stripe is normal measuring 5 mm. Normal appearing transition zone. No visible free endometrial fluid. Uterine dimensions are approximately 8.3 cm x 3.8 cm x 4 cm. Right adnexa: Ovary is normal. No mass. Normal blood flow. Right ovary dimensions approximately 2.4 cm x 1.9 cm x 2 cm. No visible right adnexal mass or cystic structure. Left adnexa: Ovary is normal. No mass. Normal blood flow. Left ovary dimensions approximately 2.2 cm x 1.4 cm x 1.9 cm. No visible left adnexal mass or cystic structure. Intraperitoneal space: No intraperitoneal fluid. Urinary bladder: Normal. US/US pelvic complete* [id number] IMPRESSION: No acute findings. CT Abd/Pel: Attestation: I personally reviewed and interpreted this imaging study as follows: Radiologist's impression: FINDINGS: Lungs: Limited assessment of the lung bases fails to reveal evidence for active cardiopulmonary process. Liver: No visible hepatic mass or cystic structure. Gallbladder and bile ducts: Normal. No calcified stones. No ductal dilation. Pancreas: Pancreas is unremarkable. No visible pancreatic ductal ectasia. Spleen: Spleen unremarkable. Adrenal glands: Adrenal glands unremarkable. Kidneys and ureters: No hydronephrosis or perinephric fluid. No visible nephrolithiasis or visible ureterolithiasis. Stomach and bowel: Assessment of the hollow viscus fails to reveal evidence of active or acute pathology. Nonobstructed bowel pattern. No visible acute diverticulitis. No visible adynamic or reactive ileus. Appendix: The appendix is visualized and appears noninflamed. Intraperitoneal space: No visible evidence of mesenteric lymphadenitis or active mesenteritis/panniculitis. No visible pneumoperitoneum or intraperitoneal ascites. Vasculature: Portal vein patent. The abdominal aorta is nonaneurysmal. Lymph nodes: No current visible evidence of active mesenteric or retroperitoneal lymphadenopathy. Urinary bladder: Urinary bladder unremarkable. Reproductive: Unremarkable as visualized. Bones/joints: No visible active or acute osseous pathology. Soft tissues: Unremarkable. CT/CT abdomen pelvis w con* [id number] IMPRESSION: Currently no visible evidence for acute abdominal or pelvic pathologic process. Discharge Plan Discharge Patient Disposition: Home Clinical Impression: Nonspecific abdominal pain Condition: Stable Prescriptions: New dicyclomine 20 mg tablet 20 mg PO TID PRN (Reason: Abdominal Discomfort) Qty: 20 RF: 0 No Action citalopram 10 mg tablet 10 mg PO DAILY RF: 0 albuterol sulfate [ProAir HFA] 90 mcg/actuation Hfa Aerosol Inhaler 1 inh INHALATION QID PRN (Reason: Shortness Of Breath) RF: 0 Xulane 150-35 mcg/24 hr patch weekly 1 patch transdermal Q7D RF: 0 Discharge Orders: Discharge ED (Routine); Ordered 11/02/20 Ordered By: Luis Fernando Boland Referrals: Daniel Eden MD [Primary Care Provider] - Discharge Diet: Advance as tolerated Discharge Activity: Resume usual activity Patient Instructions: Abdominal Pain (ED), Opioid Safety Activity Restrictions/Additional Instructions: Encourage p.o. fluids. Take medications as prescribed. Finish all medications as prescribed By your PCP. Follow-up with PCP in 2 to 3 days Coding Level of Care Code ED Irrigation Tax Assessor Collector for Chg Fwd Exam Comprehensive
[2020-11-02 17:09] LABS: Add Urine Microscopic? NO; Charge for UA Resulting for Rev
[2020-11-02 17:13] LABS: Glucose Urine UA Norm (Normal); HCG Qualitative Urine. Negative (Negative); Protein Urine Neg (Negative); Specific Gravity, Urine 1.015 (1.005-1.030); Urine Appearance Clear (CLEAR); Urine Color Yellow (Yellow); pH Urine 5 (5-7)
[2020-11-02 17:14] LABS: Bilirubin Urine Neg (Negative); Blood Urine Neg (Negative); Ketones Urine 1+ (Negative); Leukocyte Esterase Urine Negative (Negative); Nitrate Urine Negative (Negative); Urobilinogen Urine Norm (Negative)
--- NOTE | 2020-11-02 17:19 | CTR_ITS ---
PROCEDURE INFORMATION: Exam: CT Abdomen And Pelvis With Contrast Exam date and time: 11/02/2020 5:20 PM Age: 20 years old Clinical indication: Abdominal pain; Localized; Lower; Prior surgery; Surgery type: , kidney stone; Additional info: Abd pain TECHNIQUE: Imaging protocol: Computed tomography of the abdomen and pelvis with contrast. Total images: 220 Radiation optimization: All CT scans at this facility use at least one of these dose optimization techniques: automated exposure control; mA and/or kV adjustment per patient size (includes targeted exams where dose is matched to clinical indication); or iterative reconstruction. Contrast material: [id number]; Contrast volume: 95 ml; Contrast route: INTRAVENOUS (IV); COMPARISON: CT abdomen pelvis wo con [id number] 06/19/2019 12:36 AM RADIATION DOSE METRICS: Total DLP (mGy-cm): 1021.1 FINDINGS: Lungs: Limited assessment of the lung bases fails to reveal evidence for active cardiopulmonary process. Liver: No visible hepatic mass or cystic structure. Gallbladder and bile ducts: Normal. No calcified stones. No ductal dilation. Pancreas: Pancreas is unremarkable. No visible pancreatic ductal ectasia. Spleen: Spleen unremarkable. Adrenal glands: Adrenal glands unremarkable. Kidneys and ureters: No hydronephrosis or perinephric fluid. No visible nephrolithiasis or visible ureterolithiasis. Stomach and bowel: Assessment of the hollow viscus fails to reveal evidence of active or acute pathology. Nonobstructed bowel pattern. No visible acute diverticulitis. No visible adynamic or reactive ileus. Appendix: The appendix is visualized and appears noninflamed. Intraperitoneal space: No visible evidence of mesenteric lymphadenitis or active mesenteritis/panniculitis. No visible pneumoperitoneum or intraperitoneal ascites. Vasculature: Portal vein patent. The abdominal aorta is nonaneurysmal. Lymph nodes: No current visible evidence of active mesenteric or retroperitoneal lymphadenopathy. Urinary bladder: Urinary bladder unremarkable. Reproductive: Unremarkable as visualized. Bones/joints: No visible active or acute osseous pathology. Soft tissues: Unremarkable. CT/CT abdomen pelvis w con* [id number] IMPRESSION: Currently no visible evidence for acute abdominal or pelvic pathologic process. Radiation Dose CTDIVOL = (mGy): DLP = 1021.1 (mGy-cm)
[2020-11-02] MEDS: iohexol 300 mg/mL 100 mL Btl IV (17:32)
[2020-11-02 17:47] LABS: Basophils # 0.1 10^3/uL (0.0-0.1); Basophils % 0.8 %; Eosinophils # 0.1 10^3/uL (0.0-0.8); Eosinophils % 1.5 %; Hematocrit 36.1 % (37.0-47.0); Hemoglobin 12.6 g/dL (11.5-15.3); Lymphocytes # 2.8 10^3/uL (0.8-4.8); Lymphocytes % 36.4 %; Mean Corpuscular HGB Conc 34.9 g/dL (30.0-36.0); Mean Corpuscular Hemoglobin 31.8 pg (28.0-34.0); Mean Corpuscular Volume 91.2 fL (81-99); Mean Platelet Volume 11.3 fL (7.4-10.4); Monocytes # 0.6 10^3/uL (0.2-0.9); Monocytes % 7.3 %; Neutrophils # 4.07 10^3/uL (1.8-7.7); Neutrophils % 53.9 %; Nucleated Red Blood Cells % 0 %; Platelet Count 199 10^3/cmm (130-400); Red Blood Count 3.96 10^6/uL (4.1-5.3); Red Cell Distribution Width 11.6 % (12.1-15.1); White Blood Count 7.6 10^3/uL (4.0-10.0)
[2020-11-02 18:10] LABS: Alanine Aminotransferase 14 U/L (0-33); Alkaline Phosphatase 52 IU/L (35-105); Anion Gap 15.8 (5-19); Aspartate Amino Transferase 19 U/L (0-32); Blood Urea Nitrogen 8 mg/dL (6-20); Calcium 8.4 mg/dL (8.5-10.5); Carbon Dioxide 20 mmol/L (22-29); Chloride 101 mmol/L (98-107); Globulin 2.8 g/dL (1.3-4.6); Glomerular Filtration Rate 126.2 mL/min (90-130); Glucose 82 mg/dL (65-115); Osmolality Calculated 273 mOsm/kg (285-295); Potassium 3.8 mmol/L (3.5-5.1); Sodium 133 mmol/L (136-145); Total Bilirubin 0.3 mg/dL (0.15-1.2); Total Protein 6.8 g/dL (6.6-8.7)
== END 2020-11-02 18:35 | disposition home or self-care (01) ==
PROVIDERS: Emergency Provider Emergency Medicine; PCP Family Medicine
DX: R10.9 Unspecified abdominal pain (principal); Z87.442 Personal history of urinary calculi; F17.210 Nicotine dependence, cigarettes, uncomplicated
CPT/HCPCS: 36415; 74177; 76856; 80053; 81003; 81025; 85025; 99283; Q9967

== ENCOUNTER → 2021-10-18 14:10 | Outpatient (BNVA) | payer MEDICAID, SELFPAY | PROVIDERS: PCP Family Medicine; Visit Provider Nurse Practitioner Family | DX: I96 Gangrene, not elsewhere classified (principal); L97.822 Non-pressure chronic ulcer of other part of left lower leg with fat layer exposed | CPT/HCPCS: 11042; 99213 ==

== ENCOUNTER → 2021-10-25 13:55 | Outpatient (BNVA) | payer MEDICAID, SELFPAY | PROVIDERS: PCP Family Medicine; Visit Provider Nurse Practitioner Family | DX: I96 Gangrene, not elsewhere classified (principal); L97.822 Non-pressure chronic ulcer of other part of left lower leg with fat layer exposed | CPT/HCPCS: 11042 ==

== ENCOUNTER → 2021-11-01 13:37 | Outpatient (BNVA) | payer MEDICAID, SELFPAY | PROVIDERS: PCP Family Medicine; Visit Provider Nurse Practitioner Family | DX: L97.822 Non-pressure chronic ulcer of other part of left lower leg with fat layer exposed (principal); I96 Gangrene, not elsewhere classified | CPT/HCPCS: 11042 ==

== ENCOUNTER → 2021-11-08 10:42 | Outpatient (BNVA) | payer MEDICAID, SELFPAY | PROVIDERS: PCP Family Medicine; Visit Provider Nurse Practitioner Family | DX: I96 Gangrene, not elsewhere classified (principal); L97.822 Non-pressure chronic ulcer of other part of left lower leg with fat layer exposed | CPT/HCPCS: 11042 ==

== ENCOUNTER → 2021-11-15 10:41 | Outpatient (BNVA) | payer MEDICAID, SELFPAY | PROVIDERS: PCP Family Medicine; Visit Provider Nurse Practitioner Family | DX: Z09 Encounter for follow-up examination after completed treatment for conditions other than malignant neoplasm (principal) | CPT/HCPCS: 99212 ==

== ENCOUNTER 2021-12-14 06:35 | Outpatient (CLI) | payer MEDICAID, SELFPAY ==
--- NOTE | 2021-12-14 07:27 | CT_ITS ---
WS: [id number] CT ABDOMEN AND PELVIS WITH CONTRAST HISTORY: LEFT SIDED ABDOMINAL PAIN TECHNIQUE: Imaging performed of the abdomen and pelvis with IV contrast. Single phase imaging of the abdomen. Coronal and sagittal reformats are submitted. All CT scans at [facility] use at deb st one of these dose optimization techniques: automated exposure control; mA and/or kV adjustment per patient size (includes targeted exams where dose is matched to clinical indication); or iterative re construction. IV CONTRAST: Omnipaque 350; 95 mL IV. Oral contrast: Yes. DLP: 801.48 mGy.cm COMPARISON: 11/02/2020 Lower thorax: Lung bases are clear. Heart is normal size. No hiatal hernia. Liver/biliary system: Normal size with no intrahepatic dilatation. Gallbladder: Normal. No gallstones or wall thickening. No pericholecystic fluid. Pancreas: Normal size pancreas and pancreatic duct. No adjacent inflammation. Spleen: Normal size spleen. No mass or infarct. Adrenal glands: Normal. Right kidney: Normal. Left kidney: Normal. Aorta: Normal. Lymphadenopathy: No adenopathy. Small RIGHT lower quadrant lymph nodes. Free fluid: Small amount of free fluid in the cul-de-sac. Slightly more than expected for physiologic . GI tract: Unremarkable. Normal appendix. No obstruction. Abdominal wall: Unremarkable abdominal wall. No hernia. Pelvis: No free fluid or adenopathy within the pelvis. Study more than physiologic free fluid in the pelvis. RIGHT adnexal cyst with wall enhancement measures 2.5 x 2.3 cm. Suspect this is a ruptured co rpus luteal cyst. There is fluid extending adjacent to the cyst in the wall is slightly interrupted. There is an additional cyst in the LEFT adnexa measuring 2.9 x 2.6 cm. Normal anteverted uterus. Bones: Negative. CT/CT abdomen pelvis w con* [id number] IMPRESSION: 1. Free fluid in the cul-de-sac, slightly greater than physiologic. Likely sec ondary to a ruptured RIGHT ovarian cyst. 2. Bilateral ovarian cysts 3. Normal appendix. 4. Otherwise negative.
[2021-12-14] MEDS: iohexol 300 mg/mL 100 mL Btl IV (08:37)
== END 2021-12-14 06:36 | disposition home or self-care (01) ==
PROVIDERS: PCP Family Medicine; Visit Provider Nurse Practitioner Family
DX: R10.9 Unspecified abdominal pain (principal); N83.202 Unspecified ovarian cyst, left side; N83.201 Unspecified ovarian cyst, right side
CPT/HCPCS: 74177

== ENCOUNTER 2023-03-07 21:31 | Emergency (ER) | payer MEDICAID, SELFPAY ==
[2023-03-07 21:48] VITALS: BP 182/100; PULSE 95; RESP 18; TEMP 36.6; O2SAT 97; BMI 23.0
--- NOTE | 2023-03-07 21:53 | W.ED.EXTPRO ---
HPI - Extremity Problem General: Chief complaint: Extremity Injury, Upper Stated complaint: right thumb injury Time Seen by Provider: 03/07/23 21:53 History of Present Illness: 22-year-old female comes in today for injury to the right proximal thumb. Patient was picking up some broken glass from my face and excellently cut herself. Patient appears nontoxic. Patient appears no acute distress. Review of Systems General: Reports: 10 or more systems reviewed and unremarkable except in HPI and below Musc: Reports: extremity pain Skin/Breast: Reports: new lesions PFSH ED PFSH: Medical History (Updated 03/07/23 @ 22:27 by ERIK Medina) Asthma History of kidney stones Surgical History History of section, low transverse (01/31/17) Dx: Breech. Dr. Joseph at [facility] History of kidney surgery stent for kidney stone Family History Father Hypertension Family/Other Hypertension paternal uncle Grandfather Hypertension paternal Social History Smoking and tobacco/nicotine status: current every day tobacco/nicotine user cigarettes Packs smoked per day: 1 Years cigarettes smoked: 2 Alcohol intake: never Substance/Drug Use: never Physical Exam Const: COMMON NORMALS: alert HENMT: COMMON NORMALS: normocephalic HEAD & SCALP: normocephalic Neck/C-Spine: COMMON NORMALS: full ROM Resp: COMMON NORMALS: normal respiratory effort and clear to auscultation bilaterally AUSCULTATION: clear to auscultation bilaterally Cardio: COMMON NORMALS: regular rate RATE: regular rate Back/Pelvis: COMMON NORMALS: thoracic and lumbar spine normal to inspection Extremity: RIGHT UPPER EXTREMITY: Yes hand & digits (1 cm laceration proximal thumb) Neuro: SENSORIUM/ORIENTATION: Yes alert Skin: TRAUMA: laceration (Right thumb) irregular Procedures Laceration Laceration 1: Site: hand Side (If applicable): right Size (cm): 1 Description: irregular Depth: simple, single layer Local Anesthetic: lidocaine 1% and with epi Amount of anesthesia used (mL): 2 Pre-repair: wound explored and irrigated extensively Skin layer closed with: nylon Size (cm): 4-0 Number of sutures: 2 Course Vital Signs: Vital signs: Vital Signs Temperature 98 F 03/07/23 21:48 Pulse Rate 95 03/07/23 21:48 Respiratory Rate 18 03/07/23 21:48 Blood Pressure 182/100 03/07/23 21:48 Pulse Oximetry 97 03/07/23 21:48 MDM - Extremity (Nontraumatic) Medical Decision Making 22-year-old female comes in today for complaints of injury to the right thumb. On exam patient has a 1 cm curved laceration to the proximal right thumb. Patient has good range of motion of the thumb. Differential diagnosis includes fracture, foreign body, laceration. No signs of foreign body or fracture is noted in the wound. Wound was cleaned and repaired with two 4-0 nylon sutures. Patient tolerated well. Reviewed post procedure care and instructions with patient with recommendations for follow-up. No radiology studies performed this visit Discharge Plan Discharge Patient Disposition: Home Clinical Impression: Laceration of thumb Qualifiers: Encounter type: initial encounter Damage to nail status: without damage Foreign body presence: without foreign body Laterality: right Qualified Code(s): S61.011A - Laceration without foreign body of right thumb without damage to nail, initial encounter Condition: Stable Prescriptions: No Action losartan 25 mg tablet 25 mg PO DAILY prednisone 20 mg tablet 60 mg PO DAILY 5 Days Qty: 15 0RF famotidine [Pepcid] 40 mg tablet 40 mg PO BID 5 Days Qty: 10 0RF budesonide-formoterol [Symbicort] 160-4.5 mcg/actuation HFA aerosol inhaler 1 inh inhalation Q12H fluconazole 200 mg tablet 200 mg PO DAILY mupirocin 2 % ointment 1 applic topical BID Qty: 15 0RF Rx Instructions: Apply twice daily to effected area until healed albuterol sulfate [ProAir HFA] 90 mcg/actuation Hfa Aerosol Inhaler 1 inh INHALATION QID PRN (Reason: Shortness Of Breath) Discharge Orders: Discharge ED (Routine); Ordered 03/07/23 Ordered By: Richard Paige Referrals: Daniel Eden MD [Primary Care Provider] - Discharge Diet: Usual diet Discharge Activity: Increase activity as tolerated Patient Instructions: Finger Laceration (ED) Activity Restrictions/Additional Instructions: Keep wound clean and dry. It is important to keep the wound as dry as possible for the next 48 hours. After 48 hours you can wash wound with some mild soap and water and dry thoroughly and cover as needed to protect. Watch the wound for signs of infection such as increasing redness and fever. Follow-up with primary care in 7 to 10 days for suture removal. Return to ED for new concerns. Coding Level of Care Code ED Oncology Navigator for Loida Schwartz
== END 2023-03-07 22:42 | disposition home or self-care (01) ==
PROVIDERS: Emergency Provider Nurse Practitioner Family; PCP Family Medicine
DX: S61.011A Laceration without foreign body of right thumb without damage to nail, initial encounter (principal); F17.210 Nicotine dependence, cigarettes, uncomplicated; W25.XXXA Contact with sharp glass, initial encounter
CPT/HCPCS: 12001; 99282

== ENCOUNTER → 2023-06-25 15:07 | Outpatient (BNVA) | payer MEDICAID, SELFPAY | PROVIDERS: PCP Family Medicine; Visit Provider Podiatrist Foot & Ankle Surgery | DX: M72.2 Plantar fascial fibromatosis; M76.821 Posterior tibial tendinitis, right leg | CPT/HCPCS: 73630 ==

== ENCOUNTER 2023-09-15 09:27 | Emergency (ER) | payer MEDICAID, SELFPAY ==
[2023-09-15 09:59] VITALS: BP 138/83; PULSE 91; RESP 15; O2SAT 99
[2023-09-15 10:03] VITALS: TEMP 36.9
[2023-09-15 10:16] LABS: Basophils # 0.1 10^3/uL (0.0-0.1); Basophils % 0.9 %; Eosinophils # 0.1 10^3/uL (0.0-0.8); Eosinophils % 2.2 %; Lymphocytes % 30.6 %; Mean Corpuscular HGB Conc 35.1 g/dL (30-55); Mean Corpuscular Hemoglobin 32.6 pg (27-33); Mean Corpuscular Volume 92.9 fl (85-98); Mean Platelet Volume 11.3 fL (7.4-10.4); Monocytes # 0.5 10^3/uL (0.2-0.9); Monocytes % 7.1 %; Neutrophils # 3.79 10^3/uL (1.8-7.7); Neutrophils % 58.9 %; Nucleated Red Blood Cells % 0 %; Platelet Count 192 10^3/cmm (157-399); Red Blood Count 4.63 10^6/uL (3.85-5.65); Red Cell Distribution Width 11.8 % (12.1-15.1); White Blood Count 6.44 10^3/uL (3.29-11.43)
--- NOTE | 2023-09-15 11:43 | ED_ITS ---
HPI - Skin/Abscess/Foreign Bdy 2 General: Chief complaint: Skin/Abscess/Foreign Body Stated complaint: Abscesses under right arm Time Seen by Provider: 09/15/23 10:00 Source: patient Mode of arrival: ambulatory History of Present Illness: 23-year-old female noticed a solitary ly mph node in the right axilla that she was concerned about it is mildly tender she denies any drainage or redness. She did notice little bit of discomfort there when her arm was at her side. No drainage no recent infection no other lymph nodes anywhere else that she has noticed on her body. Associated symptoms: Deny chills or fever(s) Review of Systems 2 Const: Denies: fever(s) or chills Card: Denies: chest pain Resp: Denies: dyspnea GI: Denies: abdominal pain : Denies: dysuria, urinary frequency or urinary urgency Musc: Denies: neck pain or back pain Skin/Breast: Denies: rash PFSH ED 2 PFSH: Medical History History of kidney stones Asthma Surgical History History of section, low transverse (01/31/17) Dx: Breech. Dr. Joseph at [facility] History of kidney surgery stent for kidney stone Family History Father Hypertension Family/Other Hypertension paternal uncle Grandfather Hypertension paternal Social History Smoking and tobacco/nicotine status: current every day tobacco/nicotine user cigarettes Packs smoked per day: 1 Years cigarettes smoked: 2 Alcohol intake: never Substance/Drug Use: never Physical Exam 2 Const: GENERAL APPEARANCE: cooperative and comfortable O RIENTATION/CONSCIOUSNESS: Yes awake, Yes oriented to person, Yes oriented to place and Yes oriented to time HENMT: COMMON NORMALS: normocephalic, atraumatic and hearing grossly normal bilaterally HEAD & SCALP: normocephalic and atraumatic Neck/C-Spine: COMMON NORMALS: no lymphadenopathy Resp: COMMON NORMALS: normal respiratory effort, No retractions, No use of accessory muscles and clear to auscultation bilaterally AUSCULTATION: clear to auscultation bilaterally Cardio: COMMON NORMALS: regular rate, regular rhythm and No murmurs present (Cardio) RATE: regular rate RHYTHM: regular rhythm GI: COMMON NORMALS: Soft to palpation and No hepatosplenomegaly present A USCULTATION: Yes normoactive bowel sounds PALPATION: Yes Soft to palpation, No Tenderness to palpation present (GI), No Guarding due to palpation present (GI) and Yes No hepatosplenomegaly present Extremity: COMMON NORMALS: normal to inspection, capillary refill normal, no clubbing, cyanosis or edema, no calf tenderness and no pedal edema OTHER: Single solitary subcentimeter palpable lymph node axial/proximal brachial. No other lymph nodes are noted in the region no redness no erythema no sign of abscess. Neuro: SENSORIUM/ORIENTATION: Yes oriented to person, Yes oriented to place and Yes oriented to time Skin: COMMON NORMALS: no rashes or lesions noted GENERAL SKIN EXAM: no rashes or lesions noted Course 2 Vital Signs: Vital signs: Vital Signs Temperature 98.4 F 09/15/23 10:03 Pulse Rate 91 09/15/23 09:59 Respiratory Rate 15 09/15/23 09:59 Blood Pressure 138/83 09/15/23 09:59 Pulse Oximetry 99 09/15/23 09:59 Oxygen Delivery Me thod Room Air 09/15/23 09:59 MDM - Skin/Abscess/Foreign Bdy Medicial Decision Making CBC normal with normal indices and normal differential. At this point just observe noticed tender but barely palpable. Has an appointment this coming to the doctor encouraged her to keep that follow-up and can be reexamined. Return for changes or fever Medical Records I reviewed the patient's medical records. Lab Data I reviewed the patient's lab results. 09/15/23 10:05 Laboratory Results WBC 6.44 10^3/uL (3.29-11.43) 09/15/23 10:05 RBC 4.63 10^6/uL (3.85-5.65) 09/15/23 10:05 Hgb 15.10 g/dL (11.27-16.99) 09/15/23 10:05 Hct 43.0 % (36-47) 09/15/23 10:05 MCV 92.9 fl (85-98) 09/15/23 10:05 MCH 32.6 pg (27-33) 09/15/23 10:05 MCHC 35.1 g/dL (30-55) 09/15/23 10:05 RDW 11.8 % (12.1-15.1) L 09/15/23 10:05 Plt Count 192 10^3/cmm (157-399) 09/15/23 10:05 MPV 11.3 fL (7.4-10.4) H 09/15/23 10:05 Neut % (Auto) 58.9 % 09/15/23 10:05 Lymph % (Auto) 30.6 % 09/15/23 10:05 [place] % (Auto) 7.1 % 09/15/23 10:05 Eos % (Auto) 2.2 % 09/15/23 10:05 Baso % (Auto) 0.9 % 09/15/23 10:05 Neut # (Auto) 3.79 10^3/uL (1.8-7.7) 09/15/23 10:05 Lymph # (Auto) 2.0 10^3/uL (0.8-4.8) 09/15/23 10:05 [place] # (Auto) 0.5 10^3/uL (0.2-0.9) 09/15/23 10:05 Eos # (Auto) 0.1 10^3/uL (0.0-0.8) 09/15/23 10:05 Baso # (Auto) 0.1 10^3/uL (0.0-0.1) 09/15/23 10:05 Nucleated RBC % (auto) 0 % 09/15/23 10:05 Nucleated RBCs # 0.0 /100WBC 09/15/23 10:05 No radiology studies performed this visit Discharge Plan Discharge Patient Disposition: Home Clinical Impression: Axillary lymphadenopathy Condition: Stable Prescriptions: No Action losartan 25 mg tablet 25 mg PO DAILY prednisone 20 mg tablet 60 mg PO DAILY 5 Days Qty: 15 0RF famotidine [Pepcid] 40 mg tablet 40 mg PO BID 5 Days Qty: 10 0RF budesonide-formoterol [Symbicort] 160-4.5 mcg/actuation HFA aerosol inhaler 1 inh inhalation Q12H fluconazole 200 mg tablet 200 mg PO DAILY mupirocin 2 % ointment 1 applic topical BID Qty: 15 0RF Rx Instructions: Apply twice daily to effected area until healed albuterol sulfate [ProAir HFA] 90 mcg/actuation Hfa Aerosol Inhaler 1 inh INHALATION QID PRN (Reason: Shortness Of Breath) Discharge Orders: Discharge ED (Routine); Ordered 09/15/23 Ordered By: Chance Sy Referrals: Daniel Eden MD [Primary Care Provider] - Discharge Diet: Usual diet Discharge Activity: Increase activity as tolerated Patient Instructions: Opioid Safety, Pain Management Activity Restrictions/Additional Instructions: Thank you for choosing [facility] for your healthcare needs today. Please realize this is an emergency room and that we are providing you with a medical screening exam and this may not be complete and all inclusive of all the testing and or work up that you may need to determine your ailment or severity of your illness. It is very important that you follow up as instructed or that you return to the Emergency Department should you have concerns or if your condition changes or worsens in any way. You are seen today for an enlarged lymph node in the right axilla. There are no other palpable lymph nodes at the time of your exam and your white count was normal. Keep the appointment that you have scheduled with your primary care doctor this coming week to have this reassessed. If it persists or has grown in size they may consider further testing. Coding Level of Care Code ED Barrel Header for Loida Schwartz
== END 2023-09-15 10:52 | disposition home or self-care (01) ==
PROVIDERS: Emergency Provider Family Medicine; PCP Family Medicine
DX: R59.0 Localized enlarged lymph nodes (principal); F17.210 Nicotine dependence, cigarettes, uncomplicated
CPT/HCPCS: 36415; 85025; 87040; 99283

== ENCOUNTER 2023-10-31 18:07 | Emergency (ER) | payer MEDICAID, SELFPAY ==
[2023-10-31 18:18] VITALS: BP 142/93; PULSE 92; TEMP 36.9; O2SAT 97; BMI 23.0
--- NOTE | 2023-10-31 18:24 | XRR_ITS ---
PROCEDURE INFORMATION: Exam: XR Left Hand Exam date and time: 10/31/2023 6:37 PM Age: 23 years old Clinical indication: Pain; Finger(s) and hand; Left; Additional info: Pinky pain, swollen and irritated lt pinky, PT states she was mowing and hit her pinky on a tree branch TECHNIQUE: Imaging protocol: Radiologic exam of the left hand. Views: 3 or more views. COMPARISON: No relevant prior studies available. FINDINGS: Bones/joints: Normal. Soft tissues: Normal. XR/XR hand LT min 3V* [id number] IMPRESSION: No acute findings.
--- NOTE | 2023-10-31 18:29 | ED_ITS ---
HPI - Extremity Problem General: Chief complaint: Extremity Injury, Upper Stated complaint: Hand Swollen Time Seen by Provider: 10/31/23 18:24 Source: patient Mode of arrival: ambulatory Limitations: no limitations History of Present Illness: Patient is a 23-year-old female presenting to the emergency department planing of left pinky pain onset yesterday. Patient states she was mowing her yard when she was stuck by a branch, and has had increasing pain to her left fifth PIP joint. She is also noting some increased swelling and decreased range of motion. She has no prior injuries to that hand. Is not running any fevers or having any other systemic signs of illness. No other symptoms to report at this time. MD Complaint: joint swelling and joint pain Onset (ago): day(s) Pain Consistency: constant Location: left Radiation: proximal Relieving factors: nothing Exacerbating factors: range of motion and palpation Associated symptoms: Deny chest pain, fever(s) or rash Review of Systems General: Reports: 10 or more systems reviewed and unremarkable except in HPI and below Const: Denies: fever(s), chills or fatigue Eyes: Denies: change in vision ENMT: Denies: throat pain, ear or mastoid pain or nasal discharge Card: Denies: chest pain, palpitations, swelling of feet/ankles or lightheadedness Resp: Denies: dyspnea, productive cough or wheezing GI: Denies: abdominal pain, nausea, vomiting, diarrhea or constipation : Denies: flank pain, difficulty voiding, dysuria or urinary frequency Musc: Reports: extremity pain (Left pinky finger), extremity swelling (Left pinky finger) and joint pain (Left fifth PIP joint); Denies: neck pain or back pain Skin/Breast: Denies: rash Neuro: Denies: headache(s), numbness in extremities or weakness in extremities PFSH ED PFSH: Medical History History of kidney stones Asthma Surgical History History of section, low transverse (01/31/17) Dx: Breech. Dr. Joseph at [facility] History of kidney surgery stent for kidney stone Family History Father Hypertension Family/Other Hypertension paternal uncle Grandfather Hypertension paternal Social History Smoking and tobacco/nicotine status: current every day tobacco/nicotine user cigarettes Packs smoked per day: 1 Years cigarettes smoked: 2 Alcohol intake: never Substance/Drug Use: never Physical Exam Const: COMMON NORMALS: no acute distress, average body habitus, patient oriented x3, no limitations, healthy appearing, alert and well nourished HENMT: COMMON NORMALS: normocephalic and atraumatic HEAD & SCALP: normocephalic and atraumatic Eye: COMMON NORMALS: EOMs intact bilaterally and conjunctivae normal CONJUNCTIVA: Yes conjunctivae normal Neck/C-Spine: COMMON NORMALS: full ROM Resp: COMMON NORMALS: normal respiratory effort and clear to auscultation b ilaterally AUSCULTATION: clear to auscultation bilaterally Cardio: COMMON NORMALS: regular rate and regular rhythm RATE: regular rate RHYTHM: regular rhythm Extremity: NARRATIVE EXTREMITY EXAM: Left pinky is diffusely swollen and tender to palpation, worse over the PIP joint. There is a small puncture wound noted to the dorsal aspect of the distal left pinky. No red streaking. No obvious deformity. Distal neurovascular status intact. Neuro: COMMON NORMALS: patient oriented x3, moves all extremities, no focal motor deficits and no sensory deficits noted SENSORIUM/ORIENTATION: Yes alert Course Vital Signs: Vital signs: Vital Signs Temperature 98.4 F 10/31/23 18:18 Pulse Rate 63 10/31/23 19:02 Blood Pressure 113/55 10/31/23 19:02 Pulse Oximetry 94 10/31/23 19:02 Oxygen Delivery Me thod Room Air 10/31/23 19:02 MDM - Extremity (Nontraumatic) Medical Decision Making Patient presented for injury to left pinky and some worsening of swelling and pain. X-ray did not demonstrate any signs of fractures. She did not have any signs of neurovascular compromise on exam. There was evidence of a wound where she was struck by the tree, and there is some surrounding cellulitis. Because of this we will treat with Keflex. She will add ice and take Tylenol or ibuprofen. Patient is informed to monitor for any worsening signs of infection that would warrant return to the ED. Lab Data Radiology Impressions Hand X-Ray 10/31/23 18:24 IMPRESSION: No acute findings. All radiology interpretation(s) finalized by discharge Discharge Plan Discharge Patient Disposition: Home Clinical Impression: Cellulitis of left little finger Condition: Stable Prescriptions: New cephalexin 500 mg capsule 500 mg PO BID 7 Days Qty: 14 0RF No Action losartan 25 mg tablet 25 mg PO DAILY prednisone 20 mg tablet 60 mg PO DAILY 5 Days Qty: 15 0RF famotidine [Pepcid] 40 mg tablet 40 mg PO BID 5 Days Qty: 10 0RF budesonide-formoterol [Symbicort] 160-4.5 mcg/actuation HFA aerosol inhaler 1 inh inhalation Q12H fluconazole 200 mg tablet 200 mg PO DAILY mupirocin 2 % ointment 1 applic topical BID Qty: 15 0RF Rx Instructions: Apply twice daily to effected area until healed albuterol sulfate [ProAir HFA] 90 mcg/actuation Hfa Aerosol Inhaler 1 inh INHALATION QID PRN (Reason: Shortness Of Breath) Discharge Orders: Discharge ED (Routine); Ordered 10/31/23 Ordered By: Fernando Segundo Referrals: Daniel Eden MD [Primary Care Provider] - Discharge Diet: Usual diet Discharge Activity: Increase activity as tolerated Patient Instructions: Cellulitis (ED) Activity Restrictions/Additional Instructions: Keflex as prescribed. Ice to the area for added relief. Tylenol or ibuprofen for pain. Return with any new or concerning symptoms may have. Follow-up with primary care. Coding Level of Care Code ED Rotary Kiln Operator for Loida Schwartz
[2023-10-31 19:02] VITALS: BP 113/55; PULSE 63; O2SAT 94
[2023-10-31 19:46] VITALS: BP 113/55; PULSE 63; TEMP 36.9; O2SAT 94
== END 2023-10-31 19:47 | disposition home or self-care (01) ==
PROVIDERS: Emergency Provider Physician Assistant; PCP Family Medicine
DX: L03.012 Cellulitis of left finger (principal); F17.210 Nicotine dependence, cigarettes, uncomplicated
CPT/HCPCS: 73130; 99283

== ENCOUNTER → 2023-11-08 10:34 | Outpatient (BNVA) | payer MEDICAID, SELFPAY | PROVIDERS: PCP Family Medicine; Visit Provider Nurse Practitioner Women's Health | DX: R30.0 Dysuria (principal) | CPT/HCPCS: 81000 ==

== ENCOUNTER 2024-04-26 10:06 | Emergency (ER) | payer MEDICAID, SELFPAY ==
[2024-04-26 10:26] VITALS: BP 158/77; PULSE 101; RESP 18; TEMP 36.7; O2SAT 98
--- NOTE | 2024-04-26 12:24 | ED_ITS ---
HPI - Nausea/Vomiting/Diarrhea 2 General: Chief complaint: Nausea/Vomiting/Diarrhea Stated complaint: home pregancy test pos. cant keep anything down Time Seen by Provider: 04/26/24 12:09 History of Present Illness: Patient presents to the ER with complaints of nausea vomiting cannot keep anything down. Patient is found out she is approximately 1 month per her best estimate. Patient said she was this way during her first . Patient denies any coughs colds fevers chills or overt signs of sickness. Related Data Home Medications Medication Instructions Recorded Confirmed budesonide-formoterol HFA 160 1 inh inhalation Q12H 08/03/22 04/26/24 mcg-4.5 mcg/actuation aerosol inhaler (Symbicort) albuterol sulfate 90 mcg/actuation 2 puff inhalation QID PRN 04/26/24 04/26/24 aerosol inhaler (Ventolin HFA) Shortness Of Breath Or Wheezing Previous Rx's Medication Instructions Recorded ondansetron HCl 4 mg tablet 4 mg PO Q8H PRN nausea and 04/26/24 vomiting #14 tabs Allergies Allergy/AdvReac Type Severity Reaction Status Date / Time No Known Allergies Allergy Verified 04/03/24 08:12 Review of Systems 2 General: Reports: 10 or more systems reviewed and unremarkable except in HPI and below PFSH ED 2 PFSH: Medical History History of kidney stones Asthma Surgical History History of section, low transverse (01/31/17) Dx: Breech. Dr. Joseph at [facility] History of kidney surgery stent for kidney stone Family History Father Hypertension Family/Other Hypertension paternal uncle Grandfather Hypertension paternal Social History Smoking and tobacco/nicotine status: former use of tobacco/nicotine Physical Exam 2 Const: COMMON NORMALS: no acute distress, average body habitus, patient oriented x3, no limitations, healthy appearing, alert and well nourished Neck/C-Spine: COMMON NORMALS: no JVD Chest: COMMONS NORMALS: normal inspection of the chest and normal palpation of entire chest wall Resp: COMMON NORMALS: normal respiratory effort, No retractions, No use of accessory muscles and clear to auscultation bilaterally AUSCULTATION: clear to auscultation bilaterally Cardio: COMMON NORMALS: no JVD, regular rate, regular rhythm, S1 normal heart sound present, S2 normal heart sound present, No gallops present (Cardio), No clicks present (Cardio), No murmurs present (Cardio) and No rub (Cardio) R ATE: regular rate RHYTHM: regular rhythm HEART SOUNDS: S1 normal heart sound present and S2 normal heart sound present GI: COMMON NORMALS: Normal to inspection, nondistended, normoactive bowel sounds present, Soft to palpation, non-tender, No hepatosplenomegaly present and no masses PALPATION: Yes Soft to palpation and Yes No hepatosplenomegaly present Neuro: COMMON NORMALS: patient oriented x3 SENSORIUM/ORIENTATION: Yes alert Course 2 Vital Signs: Vital signs: Vital Signs Temperature 98.1 F 04/26/24 10:26 Pulse Rate 89 04/26/24 14:36 Respiratory Rate 16 04/26/24 14:36 Blood Pressure 135/72 04/26/24 14:36 Pulse Oximetry 99 04/26/24 14:36 Oxygen Delivery Me thod Room Air 04/26/24 12:29 MDM - Nausea/Vomiting/Diarrhea Medical Decision Making Lab work was obtained included CBC CMP urinalysis quantitative hCG, patient was given Zofran and while we are waiting to do her fluid challenge she decided she was ready to leave and had someplace she had to go. Patient will be discharged. Medical Records I reviewed the patient's medical records. Lab Data I reviewed the patient's lab results. 04/26/24 12:15 04/26/24 12:15 Laboratory Results WBC 10.55 10^3/uL (3.29-11.43) 04/26/24 12:15 RBC 4.56 10^6/uL (3.85-5.65) 04/26/24 12:15 Hgb 14.70 g/dL (11.27-16.99) 04/26/24 12:15 Hct 41.9 % (36-47) 04/26/24 12:15 MCV 91.9 fl (85-98) 04/26/24 12:15 MCH 32.2 pg (27-33) 04/26/24 12:15 MCHC 35.1 g/dL (30-55) 04/26/24 12:15 RDW 12.0 % (12.1-15.1) L 04/26/24 12:15 Plt Count 252 10^3/cmm (157-399) 04/26/24 12:15 MPV 10.8 fL (7.4-10.4) H 04/26/24 12:15 Neut % (Auto) 74.2 % 04/26/24 12:15 Lymph % (Auto) 18.6 % 04/26/24 12:15 [place] % (Auto) 6.1 % 04/26/24 12:15 Eos % (Auto) 0.3 % 04/26/24 12:15 Baso % (Auto) 0.5 % 04/26/24 12:15 Neut # (Auto) 7.84 10^3/uL (1.8-7.7) H 04/26/24 12:15 Lymph # (Auto) 2.0 10^3/uL (0.8-4.8) 04/26/24 12:15 [place] # (Auto) 0.6 10^3/uL (0.2-0.9) 04/26/24 12:15 Eos # (Auto) 0.0 10^3/uL (0.0-0.8) 04/26/24 12:15 Baso # (Auto) 0.1 10^3/uL (0.0-0.1) 04/26/24 12:15 Nucleated RBC % (auto) 0 % 04/26/24 12:15 Nucleated RBCs # 0.0 /100WBC 04/26/24 12:15 Sodium 135 mmol/L (136-145) L 04/26/24 12:15 Potassium 3.5 mmol/L (3.5-5.1) 04/26/24 12:15 Chloride 99 mmol/L (98-107) 04/26/24 12:15 Carbon Dioxide 21 mmol/L (22-29) L 04/26/24 12:15 Anion Gap 18.5 (5-19) 04/26/24 12:15 BUN 12 mg/dL (6-20) 04/26/24 12:15 Creatinine 0.6 mg/dL (0.5-0.9) 04/26/24 12:15 GFR Calculation 121.8 mL/min (90-130) 04/26/24 12:15 Glucose 93 mg/dL (65-115) 04/26/24 12:15 Calculated Osmolality 279 mOsm/kg (285-295) L 04/26/24 12:15 Calcium 9.8 mg/dL (8.5-10.5) 04/26/24 12:15 Magnesium 1.8 mg/dL (1.7-2.3) 04/26/24 12:15 Total Bilirubin 0.8 mg/dL (0.15-1.2) 04/26/24 12:15 AST 22 U/L (0-32) 04/26/24 12:15 ALT 32 U/L (0-33) 04/26/24 12:15 Alkaline Phosphatase 65 U/L (35-105) 04/26/24 12:15 Total Protein 7.9 g/dL (6.6-8.7) 04/26/24 12:15 Albumin 5.1 g/dL (3.5-5.2) 04/26/24 12:15 Globulin 2.8 g/dL (1.3-4.6) 04/26/24 12:15 Ser , Semi-Qnt 16649.00 mIU/mL 04/26/24 12:15 Urine Color Yellow (Yellow) 04/26/24 12:57 Urine Appearance Clear (CLEAR) 04/26/24 12:57 Urine pH 6.0 (5-7) 04/26/24 12:57 Ur Specific [place] 1.026 (1.005-1.030) 04/26/24 12:57 Urine Protein Trace (Negative) A 04/26/24 12:57 Urine Glucose (UA) Negative (Normal) 04/26/24 12:57 Urine Ketones 2+ (Negative) H 04/26/24 12:57 Urine Blood Negative (Negative) 04/26/24 12:57 Urine Nitrate Negative (Negative) 04/26/24 12:57 Urine Bilirubin Negative (Negative) 04/26/24 12:57 Urine Urobilinogen 0.2 mg/dL (Negative) 04/26/24 12:57 Ur Leukocyte Esterase Negative (Negative) 04/26/24 12:57 Urine RBC 0-2 /hpf (0-2) 04/26/24 12:57 Urine WBC 0-5 /hpf (0-5) 04/26/24 12:57 Ur Squamous Epith Cells 6-10 /hpf (0-5) 04/26/24 12:57 Amorphous Sediment Not Reportable 04/26/24 12:57 Urine Bacteria 2+ /hpf (NONE) H 04/26/24 12:57 Hyaline Casts 3.71 /lpf 04/26/24 12:57 No radiology studies performed this visit Discharge Plan Discharge Patient Disposition: Home Clinical Impression: Hyperemesis gravidarum Condition: Stable Prescriptions: New ondansetron HCl 4 mg tablet 4 mg PO Q8H PRN (Reason: nausea and vomiting) Qty: 14 0RF No Action budesonide-formoterol [Symbicort] 160-4.5 mcg/actuation HFA aerosol inhaler 1 inh inhalation Q12H albuterol sulfate [Ventolin HFA] 90 mcg/actuation HFA aerosol inhaler 2 puff INHALATION QID PRN (Reason: Shortness Of Breath Or Wheezing) Discharge Orders: Discharge ED (Routine); Ordered 04/26/24 Ordered By: Km Montoya Referrals: Daniel Eden MD [Primary Care Provider] - 1 week Patient Instructions: Hyperemesis Gravidarum (ED) Activity Restrictions/Additional Instructions: Thank you for choosing [facility] for your healthcare needs today. Please realize that you were seen in the emergency department and that we are providing you with an emergency medical screening exam and this may not be a complete and all exclusive of all testing and/or medical workup we may need to determine your element or severity of your illness. It is very important that you follow-up as instructed with your primary care provider or specialist for the additional evaluation and to discuss your medical treatment plan. You may return to the emergency department should you have concerns or if your condition changes or worsens in any way. Coding Level of Care Code ED Production Supervisor for Loida Schwartz
[2024-04-26 12:29] VITALS: PULSE 98; RESP 17; O2SAT 98
[2024-04-26 12:32] LABS: Basophils # 0.1 10^3/uL (0.0-0.1); Basophils % 0.5 %; Eosinophils % 0.3 %; Hematocrit 41.9 % (36-47); Lymphocytes % 18.6 %; Mean Corpuscular HGB Conc 35.1 g/dL (30-55); Mean Corpuscular Hemoglobin 32.2 pg (27-33); Mean Corpuscular Volume 91.9 fl (85-98); Mean Platelet Volume 10.8 fL (7.4-10.4); Monocytes # 0.6 10^3/uL (0.2-0.9); Monocytes % 6.1 %; Neutrophils # 7.84 10^3/uL (1.8-7.7); Neutrophils % 74.2 %; Nucleated Red Blood Cells % 0 %; Platelet Count 252 10^3/cmm (157-399); Red Blood Count 4.56 10^6/uL (3.85-5.65); White Blood Count 10.55 10^3/uL (3.29-11.43)
[2024-04-26 13:06] LABS: Alanine Aminotransferase 32 U/L (0-33); Albumin Level 5.1 g/dL (3.5-5.2); Alkaline Phosphatase 65 U/L (35-105); Anion Gap 18.5 (5-19); Aspartate Amino Transferase 22 U/L (0-32); Blood Urea Nitrogen 12 mg/dL (6-20); Calcium 9.8 mg/dL (8.5-10.5); Carbon Dioxide 21 mmol/L (22-29); Chloride 99 mmol/L (98-107); Globulin 2.8 g/dL (1.3-4.6); Glomerular Filtration Rate 121.8 mL/min (90-130); Glucose 93 mg/dL (65-115); Magnesium 1.8 mg/dL (1.7-2.3); Osmolality Calculated 279 mOsm/kg (285-295); Potassium 3.5 mmol/L (3.5-5.1); Sodium 135 mmol/L (136-145); Total Bilirubin 0.8 mg/dL (0.15-1.2); Total Protein 7.9 g/dL (6.6-8.7)
[2024-04-26] MEDS: ondansetron 4 MG Tablet PO (13:10)
[2024-04-26 13:14] LABS: Bilirubin Urine Negative (Negative); Blood Urine Negative (Negative); Glucose Urine UA Negative (Normal); Ketones Urine 2+ (Negative); Leukocyte Esterase Urine Negative (Negative); Nitrate Urine Negative (Negative); Protein Urine Trace (Negative); Specific Gravity, Urine 1.026 (1.005-1.030); Urine Appearance Clear (CLEAR); Urine Color Yellow (Yellow); Urobilinogen Urine 0.2 mg/dL (Negative)
[2024-04-26 13:17] LABS: Add Urine Microscopic? YES; Bacteria Urine 2+ /hpf; Hyaline Casts Urine 3.71 /lpf; RBC Urine 0-2 /hpf (0-2); WBC Urine 0-5 /hpf (0-5)
[2024-04-26 14:36] VITALS: BP 135/72; PULSE 89; RESP 16; O2SAT 99
== END 2024-04-26 14:33 | disposition home or self-care (01) ==
PROVIDERS: Emergency Provider Emergency Medicine; PCP Family Medicine
DX: O21.0 Mild hyperemesis gravidarum (principal); Z87.891 Personal history of nicotine dependence
CPT/HCPCS: 80053; 81001; 83735; 84702; 85025; 99283; Q0162

== ENCOUNTER → 2024-04-30 14:11 | Outpatient (BNVA) | payer MEDICAID, SELFPAY | PROVIDERS: PCP Family Medicine; Visit Provider Nurse Practitioner Women's Health | DX: O26.891 Other specified pregnancy related conditions, first trimester (principal); Z3A.01 Less than 8 weeks gestation of pregnancy | CPT/HCPCS: 76801 ==

== ENCOUNTER 2024-09-09 16:21 | Oncology outpatient (recurring) (ONCR) | payer MEDICAID, SELFPAY ==
[2024-09-09] MEDS: rho(d) immune globulin 1,500 unit Syringe 1500 UNIT IM (16:50)
[2024-09-09 16:53] VITALS: BP 133/74; PULSE 80; RESP 16; TEMP 36.9; O2SAT 98
== END 2024-09-24 23:59 | disposition home or self-care (01) ==
LOC: ONCMED 16:23
PROVIDERS: PCP Family Medicine; Visit Provider Family Medicine
DX: Z67.21 Type B blood, Rh negative (principal); Z79.899 Other long term (current) drug therapy
CPT/HCPCS: 96372; J2790

== ENCOUNTER 2024-11-30 09:37 | Outpatient (CLI) | payer MEDICAID, SELFPAY ==
[2024-11-30] VITALS (13 sets, daily range): BP systolic 123–146; BP diastolic 78–93; PULSE 57–80; BMI 28.8
[2024-11-30 10:20] LABS: Hematocrit 36.6 % (36-47); Hemoglobin 12.40 g/dL (11.27-16.99); Mean Corpuscular HGB Conc 33.9 g/dL (30-55); Mean Corpuscular Hemoglobin 31.9 pg (27-33); Mean Corpuscular Volume 94.1 fl (85-98); Nucleated Red Blood Cells % 0 %; Platelet Count 123 10^3/cmm (157-399); Red Blood Count 3.89 10^6/uL (3.85-5.65); White Blood Count 9.38 10^3/uL (3.29-11.43)
[2024-11-30 10:23] LABS: Glucose Urine UA Negative (Normal); Nitrate Urine Negative (Negative); Specific Gravity, Urine 1.022 (1.005-1.030)
[2024-11-30 10:25] LABS: Add Urine Microscopic? YES
[2024-11-30 10:44] LABS: Alanine Aminotransferase 17 U/L (0-33); Albumin Level 3.3 g/dL (3.5-5.2); Alkaline Phosphatase 120 U/L (35-105); Anion Gap 19.8 (5-19); Aspartate Amino Transferase 20 U/L (0-32); Blood Urea Nitrogen 9 mg/dL (6-20); Calcium 8.6 mg/dL (8.5-10.5); Carbon Dioxide 18 mmol/L (22-29); Chloride 104 mmol/L (98-107); Creatinine Clr Calc Pharmacy 137.8537; Globulin 2.5 g/dL (1.3-4.6); Glucose 96 mg/dL (65-115); Osmolality Calculated 285 mOsm/kg (285-295); Potassium 3.8 mmol/L (3.5-5.1); Sodium 138 mmol/L (136-145); Total Protein 5.8 g/dL (6.6-8.7); UPRO/UCREAT Ratio 0.11 mg/mg CR; Uric Acid 6.2 mg/dL (2.4-5.7)
[2024-11-30 10:46] LABS: UA Slide Review UA Slide Review Perf
== END 2024-11-30 11:00 | disposition home or self-care (01) ==
LOC: OPOB 09:37 → OBGYN 09:38
PROVIDERS: PCP Family Medicine; Visit Provider Family Medicine
DX: O36.8190 Decreased fetal movements, unspecified trimester, not applicable or unspecified (principal); Z3A.00 Weeks of gestation of pregnancy not specified
CPT/HCPCS: 36415; 59025; 80053; 81001; 82570; 84156; 84550; 85025; 99211

== ENCOUNTER 2024-12-02 10:45 | Outpatient (CLI) | payer MEDICAID, SELFPAY ==
[2024-12-02] VITALS (7 sets, daily range): BP systolic 136–156; BP diastolic 79–100; PULSE 78–89; RESP 15; BMI 28.5
[2024-12-02 11:18] LABS: Hematocrit 37.6 % (36-47); Hemoglobin 13.10 g/dL (11.27-16.99); Mean Corpuscular HGB Conc 34.8 g/dL (30-55); Mean Corpuscular Hemoglobin 32.7 pg (27-33); Mean Corpuscular Volume 93.8 fl (85-98); Nucleated Red Blood Cells % 0 %; Platelet Count 127 10^3/cmm (157-399); Red Blood Count 4.01 10^6/uL (3.85-5.65); White Blood Count 10.37 10^3/uL (3.29-11.43)
[2024-12-02 11:30] LABS: Glucose Urine UA Negative (Normal); Nitrate Urine Negative (Negative); Specific Gravity, Urine 1.019 (1.005-1.030)
[2024-12-02 11:34] LABS: Alanine Aminotransferase 20 U/L (0-33); Albumin Level 3.6 g/dL (3.5-5.2); Alkaline Phosphatase 136 U/L (35-105); Anion Gap 18.3 (5-19); Blood Urea Nitrogen 10 mg/dL (6-20); Calcium 9.2 mg/dL (8.5-10.5); Carbon Dioxide 21 mmol/L (22-29); Chloride 103 mmol/L (98-107); Creatinine Clr Calc Pharmacy 117.6320; Globulin 2.9 g/dL (1.3-4.6); Glucose 82 mg/dL (65-115); Osmolality Calculated 284 mOsm/kg (285-295); Potassium 4.3 mmol/L (3.5-5.1); Sodium 138 mmol/L (136-145); Total Protein 6.5 g/dL (6.6-8.7); Uric Acid 6.3 mg/dL (2.4-5.7)
[2024-12-02 11:36] LABS: Add Urine Microscopic? YES
[2024-12-02 11:42] LABS: Aspartate Amino Transferase 33 U/L (0-32)
[2024-12-02 12:14] LABS: UPRO/UCREAT Ratio 0.24 mg/mg CR
== END 2024-12-02 12:27 | disposition home or self-care (01) ==
LOC: OPOB 10:49 → OBGYN 10:49
PROVIDERS: PCP Family Medicine; Visit Provider Family Medicine
DX: O26.899 Other specified pregnancy related conditions, unspecified trimester (principal); Z3A.00 Weeks of gestation of pregnancy not specified
CPT/HCPCS: 36415; 59025; 80053; 81001; 82570; 84156; 84550; 85025; 99211

== ENCOUNTER 2024-12-04 08:30 | Inpatient (IN) | payer MEDICAID, SELFPAY ==
[2024-12-04] VITALS (39 sets, daily range): BP systolic 110–187; BP diastolic 53–105; PULSE 57–90; RESP 16–18; TEMP 36.2–36.7; O2SAT 97–100; BMI 28.7
[2024-12-04 07:53] LABS: Glucose Urine UA Negative (Normal); Nitrate Urine Negative (Negative); Specific Gravity, Urine 1.018 (1.005-1.030)
[2024-12-04 08:01] LABS: Hematocrit 37.3 % (36-47); Hemoglobin 13.10 g/dL (11.27-16.99); Mean Corpuscular HGB Conc 35.1 g/dL (30-55); Mean Corpuscular Hemoglobin 32.9 pg (27-33); Mean Corpuscular Volume 93.7 fl (85-98); Nucleated Red Blood Cells % 0 %; Platelet Count 118 10^3/cmm (157-399); Red Blood Count 3.98 10^6/uL (3.85-5.65); White Blood Count 8.75 10^3/uL (3.29-11.43)
[2024-12-04 08:14] LABS: UPRO/UCREAT Ratio 1.63 mg/mg CR
[2024-12-04 08:16] LABS: UA Slide Review UA Slide Review Perf
[2024-12-04 08:27] LABS: PCP Screen Urine Negative (Negative)
--- NOTE | 2024-12-04 08:36 | PM.OBGYHP ---
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 The patient had been in the hospital 2 days ago also complaining of elevated blood pressure. At that time her systolic blood pressures were in the 140s over 80s. Her protein creatinine ratio was 0.24. The patient went home but had a severe headache yesterday. And this morning woke up with right chest and shoulder pain. Today, after coming in for the right chest pain, she is noted to have blood pressures with systolics ranging into the 180s. She had 1 systolic blood pressure in the 150s, but otherwise all of her blood pressures have been over 160 Regarding her right shoulder pain. She describes the pain as sharp. It starts in her shoulder and extends down into her upper right chest. She states it is worse sometimes a deep breath. It is not worse with exertion. There is no presyncope, nausea, or extensions of pain anywhere else. Present Details : 2 Para: 1 Labs Rubella: Immune RPR: Negative GBS: Negative Review of Systems General: Reports: 10 or more systems reviewed and unremarkable except in HPI and below Const: Reports: fatigue; Denies: fever(s) Eyes: Denies: change in vision Musc: Reports: back pain and joint pain (Right shoulder) Samy/Lymph: Denies: easy bruising Medications/Allergies Home Medications ?Medication ?Instructions ?Recorded ?Confirmed ?Last Taken ?Type budesonide-formoterol HFA 160 1 inh inhalation Q12H 08/03/22 04/26/24 12/03/24 19:00 History mcg-4.5 mcg/actuation aerosol inhaler (Symbicort) albuterol sulfate 90 mcg/actuation 2 puff inhalation QID PRN 04/26/24 04/26/24 12/03/24 12:00 History aerosol inhaler (Ventolin HFA) Shortness Of Breath Or Wheezing ondansetron HCl 4 mg tablet 4 mg PO Q8H PRN nausea and 04/26/24 Unknown Rx vomiting #14 tabs Allergies Allergy/AdvReac Type Severity Reaction Status Date / Time No Known Allergies Allergy Verified 04/03/24 08:12 PFSH 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 Dr. Joseph at [facility] History of kidney surgery stent for kidney stone Family History Father Hypertension Family/Other Hypertension paternal uncle Grandfather Hypertension paternal Social History Smoking and tobacco/nicotine status: never used tobacco/nicotine Other Female Reproductive History: Hx Age of Menarche: 12 History History History 2 Term 1 0 Miscarriages/Ectopic 0 Living Children 1 Vitals/I&O/Wt Last Vital Signs Pulse 69 12/04/24 08:32 BP 165/91 12/04/24 08:32 Pulse Ox 98 12/04/24 07:37 O2 Del Method Room Air 12/04/24 08:12 Weight last 48 hrs Weight 162 lb Weight 162 lb Physical Exam Const: COMMON NORMALS: patient oriented x3 and alert HENMT: COMMON NORMALS: moist oral mucous membranes HEAD & SCALP: normal to inspection Chest: COMMONS NORMALS: normal inspection of the chest Resp: COMMON NORMALS: clear to auscultation bilaterally AUSCULTATION: clear to auscultation bilaterally Cardio: COMMON NORMALS: regular rate and regular rhythm RATE: regular rate RHYTHM: regular rhythm GI: INSPECTION: Yes normal to inspection and Yes other (Gravid) Extremity: COMMON NORMALS: normal to inspection GENERAL: Yes edema (Trace) Neuro: COMMON NORMALS: patient oriented x3, moves all extremities and no sensory deficits noted SENSORIUM/ORIENTATION: Yes alert Psych: COMMON NORMALS: mental status grossly normal Skin: COMMON NORMALS: no rashes or lesions noted GENERAL SKIN EXAM: no rashes or lesions noted Data 12/04/24 07:45 Results Labs OB ([facility]): Blood Type B Negative Today Antibody Screen Negative Today Hct, (36-47) 37.3 % Today Hgb, (11.27-16.99) 13.10 g/dL Today Rho(D) Type Rh negative Today Plt Count, (157-399) 118 10^3/cmm L Today Uric Acid, (2.4-5.7) 6.3 mg/dL H 12/02/24 Ser , Semi-Qnt 35616.00 mIU/mL 04/26/24 Urine Opiates Screen, (Negative) Negative ng/mL Today Ur Barbiturates Screen, (Negative) Negative ng/mL Today Ur Phencyclidine Scrn, (Negative) Negative ng/mL Today Ur Amphetamines Screen, (Negative) Negative ng/mL Today U Benzodiazepines Scrn, (Negative) Negative ng/mL Today Urine Cocaine Screen, (Negative) Negative ng/mL Today U Marijuana (THC) Screen, (Negative) Negative ng/mL Today A&P Assessment and plan 1. 38 weeks gestation of : We will proceed with section and bilateral tubal ligation as she was scheduled to have it done next week. We are also going initiate magnesium due to multiple elevated systolic blood pressure readings greater than 160 which puts her in the preeclampsia with severe features category. While this may be due to anxiety, she has other symptoms concerning for preeclampsia, and at this point we are better served to treat her more aggressively. 2. Preeclampsia: 3. Right shoulder pain: This does not appear to have any symptoms associated with that that would be concerning for cardiovascular complications. 4. Previous section: 5. Sterilization consult: PDMP PDMP Reviewed: Not Reviewed Attestations Medical Necessity Statement*: I anticipate routine and preeclampsia care. She would likely be in the hospital for 2 to 3 days. Coding Level of Care Code Acute Code for Chg Fwd Diagnoses 38 weeks gestation of Z3A.38 Preeclampsia O14.90 Right shoulder pain M25.511 Previous section Z98.891 Sterilization consult Z30.09
[2024-12-04] MEDS: magnesium sulfate premix 4 GM/100 ML PREMIX IV (08:49)
[2024-12-04] MEDS: magnesium sulfate premix 20 GM/500 ML BAG IV (08:49)
--- NOTE | 2024-12-04 09:42 | ANES.PAUD2 ---
Pre-Anesthetic Update Pre-Anesthetic Assessment: Date of Surgery/Procedure: 12/04/24 Proposed Procedure: Repeat and tubal Any changes to Pre-Anesthetic Assessment?: No Labs Last 48hrs: Short CBC 12/04/24 Range/Units 07:45 WBC 8.75 (3.29-11.43) 10^ 3/uL Hgb 13.10 (11.27-16.99) g/ dL Hct 37.3 (36-47) % MCV 93.7 (85-98) fl Plt Count 118 L (157-399) 10^3/c mm Neut % (Auto) 64.4 % Neut # (Auto) 5.63 (1.8-7.7) 10^3/u L Urine 12/04/24 Range/Units 07:05 Urine Color Yellow (Yellow) Urine Appearance Cloudy A (CLEAR) Urine pH 6.0 (5-7) Ur Specific Gravit y 1.018 (1.005-1.030) Urine Protein 3+ A (Negative) Urine Glucose (UA) Negative (Normal) Urine Ketones Negative (Negative) Urine Nitrate Negative (Negative) Urine Bilirubin Negative (Negative) Ur Leukocyte Georgie ase Negative (Negative) Urine RBC 11-20 H (0-2) /hpf Urine WBC 21-50 H (0-5) /hpf Blood Bank 12/04/24 07:45 Blood Type B Negative Rho(D) Type Rh negative Antibody Screen Negative Vitals: Pulse Rate 90 12/04/24 09:02 Pulse Rhythm Regular 12/04/24 08:12 Respiratory Effort Spontaneous, Non- Labored 12/04/24 08:12 Respiratory Depth Normal 12/04/24 08:12 Respiratory Patter n Normal 12/04/24 08:12 Blood Pressure 144/86 12/04/24 09:02 Pulse Oximetry 98 12/04/24 07:37 Oxygen Delivery Me thod Room Air 12/04/24 08:12 Exam: Pre-Anes Outpt Exam: alert, oriented x 3, clear to auscultation bilaterally and regular rate & rhythm
--- NOTE | 2024-12-04 10:10 | P.OP_ITS ---
Operative Report Date of procedure: December 04, 2024 Pre-op diagnosis: 1. 24-year-old 2 para 1-0-0-1 at 3 8 weeks estimated gestational age 2. Preeclampsia 3. History of previous section 4. Desire sterilization Post-op diagnosis: Status post low-transverse section and intraoperative bilateral tubal ligation Procedure done: 1. Repeat low-transverse section and intraoperative bilateral tubal ligation using modified Deville technique Specimens removed/disposition: 1. Female infant with a weight of 6 pounds 15 ounces and Apgars of 7 and 9 2. Bilateral fallopian tube segments with the right segment being tagged 3. Placenta with a three-vessel cord delivered intact Pathology: Bilateral fallopian tubes with the right segment being tagged Surgeon: Luc Orr MD Estimated blood loss (mL): 500 Complications: None Procedure: The patient was brought back to the operating room where she was prepped and draped in usual sterile fashion. Spinal anesthesia was performed was found to be adequate. The incision was infused with 0.5% bupivacaine 20 cc. A lower transverse skin incision was then made with a #10 blade. I then dissected down to the underlying subcutaneous tissue until arriving at the prerectal fascia. The fascia was then nicked with the scalpel bilaterally. The fascial incisions were then carried laterally with Schmidt scissors. Attention was then turned to the superior aspect of the incision which was grasped with kochers and tented up away from the underlying rectus abdominis muscles. The muscles were then dissected away from the fascia manually, and later with Schmidt scissors. Attention was then turned to the inferior aspect of the incision, and the fascia was dissected away from the underlying muscle in similar fashion. The rectus abdominis muscles were then spread manually. The peritoneum was entered manually. Excellent visualization of the uterus was noted. A lower transverse uterine incision was then made with a #10 blade. Upon arriving at the intrauterine cavity, the uterine incision was then extended manually. The infant was noted to be in vertex position. The baby was delivered without difficulty. After delivery of the head, the mouth and nose were suctioned at the site of the incision. There was no meconium. There was a nuchal cord x 1 which was reduced at the time of delivery.. The baby was then completely delivered and placed on the abdomen. The cord was cut and clamped. The baby was then handed to the waiting nurse. The placenta was removed intact. The uterus was externalized. The intrauterine cavity was cleansed of any remaining debris. The uterine incision was reapproximated in 2 layers. The first layer was performed with 0 Vicryl in a running locked stitch. The second layer was an imbricating stitch also using 0 Vicryl. Attention was then turned to the right fallopian tube which was ligated cut and cauterized with 0 plain gut in a modified Alf fashion. Attention was then turned to the left fallopian tube which was also ligated cut cauterized in similar fashion. The uterus was replaced into the abdomen. The peritoneum was then irrigated with warm saline. I reexamined the uterine incision and found it to be hemostatic. The rectus abdominis muscles were then reapproximated using 0 Vicryl in a running stitch. The fascia was then reapproximated using 0 Vicryl in running stitch. The subcutaneous tissue was then reapproximated using 0 Vicryl in a running stitch. The skin was reapproximated using [place]. A sterile dressing was placed. All counts were correct x2. Both the mother and baby were in stable condition.
[2024-12-04] MEDS: HYDROcodone-acetaminophen 5-325 mg Tablet PO ×2 (12:53→20:34)
--- NOTE | 2024-12-04 14:34 | ANE.PACU2 ---
Inpatient post-anesthesia follow up: Airway intact: Yes Vital signs: Temperature 97.1 F Pulse Rate 76 Respiratory Rate 16 Blood Pressure 122/78 Pulse Oximetry 100 Oxygen Delivery Me thod Room Air Oxygen Flow Rate Fraction of Inspir ed Oxygen Hydration adequate: Yes Nausea and vomiting: No Pain level: 1 Mental status: Baseline
[2024-12-05] VITALS (7 sets, daily range): BP systolic 119–161; BP diastolic 73–99; PULSE 59–92; RESP 16; TEMP 36.7
[2024-12-05] MEDS: HYDROcodone-acetaminophen 5-325 mg Tablet PO ×4 (02:33→16:09)
[2024-12-05] MEDS: diphenhydrAMINE 50 mg/mL SDV 1mL 25 MG IVP (02:34)
[2024-12-05 04:30] LABS: Hematocrit 29.0 % (36-47); Hemoglobin 10.10 g/dL (11.27-16.99); Mean Corpuscular HGB Conc 34.8 g/dL (30-55); Mean Corpuscular Hemoglobin 33.1 pg (27-33); Mean Corpuscular Volume 95.1 fl (85-98); Platelet Count 93 10^3/cmm (157-399); Red Blood Count 3.05 10^6/uL (3.85-5.65); White Blood Count 7.24 10^3/uL (3.29-11.43)
[2024-12-05] MEDS: PRENATAL VIT NO.130/IRON/FOLIC 1 EACH TABLET PO (07:43)
--- NOTE | 2024-12-05 08:00 | PM.OBGYDC ---
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 38 weeks gestation of : 2. Pre-eclampsia in third trimester: 3. Acute pain of right shoulder: 4. Previous section: 5. Sterilization consult: Reason for Visit Reason for Visit: Elevated Bp, shoulder pain Hospital Course Hospital Course The patient presented to the hospital complaining of right shoulder pain and elevated blood pressure. The patient was known to be very anxious. She had multiple severe blood pressures. Her protein creatinine ratio was elevated. The patient had a section scheduled for the following week. The decision was made to proceed to after admission since she met criteria for preeclampsia. Initially mag was started. The patient's blood pressure dropped after her spinal was placed. She required some benja to treat her hypotension. Her blood pressure remained low. Her mag was stopped. We waited to see if she would have any more severe blood pressures before reinitiating magnesium. She did not have any severe blood pressures for the range of hospital stay. Her postoperative course was unremarkable. Her urine output was appropriate. Her bleeding was minimal. Her pain was controlled. She had no symptoms of preeclampsia. Information Peripartum Data: Delivery Method: Physical Exam Narrative: She is in no acute distress Lungs are clear auscultation bilaterally Her heart has a regular rate and rhythm Her fundus is below the umbilicus and firm Her dressing is clean, dry and intact Her extremities have trace edema Urinary Catheter Management: Latex Free: Cath Placed During This Visit: yes, but has since been removed by the nurse Reason for Continuing Indwelling Catheter: Decision to DC Catheter Urinary Catheter Date of Insertion: 12/04/24 Urinary Catheter Time of Insertion: 09:20 Date Urinary Catheter Removed: 12/05/24 Time Urinary Catheter Discontinued: 04:25 History History History 2 Term 1 0 Miscarriages/Ectopic 0 Living Children 1 Discharge Data Studies Completed and Pending Pending at discharge Category Date Time Status CBC Auto Diff [Complete Blood Count w/Auto] Routine Lab 12/05/24 16:00 Uncollected Complete Crossmatch Stat Lab 12/04/24 07:45 Results Rho D Immune Globulin Stat Lab 12/04/24 07:45 Results Type and Screen Routine Lab 12/04/24 07:45 Results Pathology: Surgical [PTH] Routine Pth 12/04/24 12:14 Received Laboratory Results WBC 7.24 10^3/uL (3.29-11.43) 12/05/24 04:20 RBC 3.05 10^6/uL (3.85-5.65) L 12/05/24 04:20 Hgb 10.10 g/dL (11.27-16.99) L 12/05/24 04:20 Hct 29.0 % (36-47) L 12/05/24 04:20 MCV 95.1 fl (85-98) 12/05/24 04:20 MCH 33.1 pg (27-33) H 12/05/24 04:20 MCHC 34.8 g/dL (30-55) 12/05/24 04:20 RDW 13.0 % (12.1-15.1) 12/05/24 04:20 Plt Count 93 10^3/cmm (157-399) L 12/05/24 04:20 MPV 12.0 fL (7.4-10.4) H 12/05/24 04:20 Neut % (Auto) 64.4 % 12/04/24 07:45 Lymph % (Auto) 25.9 % 12/04/24 07:45 [place] % (Auto) 7.2 % 12/04/24 07:45 Eos % (Auto) 1.6 % 12/04/24 07:45 Baso % (Auto) 0.6 % 12/04/24 07:45 Neut # (Auto) 5.63 10^3/uL (1.8-7.7) 12/04/24 07:45 Lymph # (Auto) 2.3 10^3/uL (0.8-4.8) 12/04/24 07:45 [place] # (Auto) 0.6 10^3/uL (0.2-0.9) 12/04/24 07:45 Eos # (Auto) 0.1 10^3/uL (0.0-0.8) 12/04/24 07:45 Baso # (Auto) 0.1 10^3/uL (0.0-0.1) 12/04/24 07:45 Nucleated RBC % (auto) 0 % 12/04/24 07:45 Nucleated RBCs # 0.0 /100WBC 12/04/24 07:45 Urine Color Yellow (Yellow) 12/04/24 07:05 Urine Appearance Cloudy (CLEAR) A 12/04/24 07:05 Urine pH 6.0 (5-7) 12/04/24 07:05 Ur Specific [place] 1.018 (1.005-1.030) 12/04/24 07:05 Urine Protein 3+ (Negative) A 12/04/24 07:05 Urine Glucose (UA) Negative (Normal) 12/04/24 07:05 Urine Ketones Negative (Negative) 12/04/24 07:05 Urine Blood 1+ (Negative) A 12/04/24 07:05 Urine Nitrate Negative (Negative) 12/04/24 07:05 Urine Bilirubin Negative (Negative) 12/04/24 07:05 Urine Urobilinogen 0.2 mg/dL (Negative) 12/04/24 07:05 Ur Leukocyte Esterase Negative (Negative) 12/04/24 07:05 Urine RBC 11-20 /hpf (0-2) H 12/04/24 07:05 Urine WBC 21-50 /hpf (0-5) H 12/04/24 07:05 Ur Squamous Epith Cells 11-20 /hpf (0-5) H 12/04/24 07:05 Amorphous Sediment Not Reportable 12/04/24 07:05 Urine Bacteria 4+ /hpf (NONE) H 12/04/24 07:05 Hyaline Casts 7.85 /lpf 12/04/24 07:05 U Random Total Protein 184 mg/dL 12/04/24 07:05 Urine Creatinine 113 mg/dL (28-217) 12/04/24 07:05 Protein/Creatinin Ratio 1.63 mg/mg CR 12/04/24 07:05 Urine Opiates Screen Negative ng/mL (Negative) 12/04/24 07:05 Ur Barbiturates Screen Negative ng/mL (Negative) 12/04/24 07:05 Ur Phencyclidine Scrn Negative ng/mL (Negative) 12/04/24 07:05 Ur Amphetamines Screen Negative ng/mL (Negative) 12/04/24 07:05 U Benzodiazepines Scrn Negative ng/mL (Negative) 12/04/24 07:05 Urine Cocaine Screen Negative ng/mL (Negative) 12/04/24 07:05 U Marijuana (THC) Screen Negative ng/mL (Negative) 12/04/24 07:05 Blood Type B Negative 12/04/24 07:45 Rho(D) Type Rh negative 12/04/24 07:45 Antibody Screen Negative 12/04/24 07:45 Screen Negative (Negative) 12/05/24 04:20 Vitals Last Vital Signs Temp 98.1 F 12/04/24 18:00 Pulse 78 12/05/24 07:12 Resp 18 12/04/24 18:00 BP 134/74 12/05/24 07:12 Pulse Ox 100 12/04/24 10:45 O2 Del Method Room Air 12/04/24 08:12 Results Labs OB ([facility]): Blood Type B Negative 12/04/24 Antibody Screen Negative 12/04/24 Hct, (36-47) 29.0 % L Today Hgb, (11.27-16.99) 10.10 g/dL L Today Rho(D) Type Rh negative 12/04/24 Plt Count, (157-399) 93 10^3/cmm L Today Uric Acid, (2.4-5.7) 6.3 mg/dL H 12/02/24 Ser , Semi-Qnt 75201.00 mIU/mL 04/26/24 Urine Opiates Screen, (Negative) Negative ng/mL 12/04/24 Ur Barbiturates Screen, (Negative) Negative ng/mL 12/04/24 Ur Phencyclidine Scrn, (Negative) Negative ng/mL 12/04/24 Ur Amphetamines Screen, (Negative) Negative ng/mL 12/04/24 U Benzodiazepines Scrn, (Negative) Negative ng/mL 12/04/24 Urine Cocaine Screen, (Negative) Negative ng/mL 12/04/24 U Marijuana (THC) Screen, (Negative) Negative ng/mL 12/04/24 Discharge Plan Discharge Patient Disposition: Home Condition: Stable Prescriptions: New ibuprofen 800 mg Tablet 800 mg PO TID Qty: 45 0RF hydrocodone-acetaminophen 5-325 mg Tablet 1 tab PO Q6H PRN (Reason: Moderate To Severe Pain) Qty: 28 0RF Vitamin 27 mg iron- 800 mcg Tablet 1 tab PO DAILY Qty: 90 0RF Continued budesonide-formoterol [Symbicort] 160-4.5 mcg/actuation HFA aerosol inhaler 1 inh inhalation Q12H albuterol sulfate [Ventolin HFA] 90 mcg/actuation HFA aerosol inhaler 2 puff INHALATION QID PRN (Reason: Shortness Of Breath Or Wheezing) Discontinued ondansetron HCl 4 mg tablet 4 mg PO Q8H PRN (Reason: nausea and vomiting) Qty: 14 0RF Referrals: Luc Orr MD [Physician, Family Practice] - 4-7 days Referral Note: Preferably Sunday or Sunday. 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
[2024-12-05] MEDS: ferrous sulfate EC 325 mg Tablet PO (16:09)
[2024-12-05 16:10] LABS: Hematocrit 30.1 % (36-47); Hemoglobin 10.40 g/dL (11.27-16.99); Mean Corpuscular HGB Conc 34.6 g/dL (30-55); Mean Corpuscular Hemoglobin 33.0 pg (27-33); Mean Corpuscular Volume 95.6 fl (85-98); Nucleated Red Blood Cells % 0 %; Platelet Count 117 10^3/cmm (157-399); Red Blood Count 3.15 10^6/uL (3.85-5.65); White Blood Count 8.69 10^3/uL (3.29-11.43)
--- NOTE | 2024-12-05 16:14 | PC.NURSE ---
PT STATES THAT PAIN IS WORSE TOLD HER THAT SHE NEEDED TO GET UP AND WALK AROUND. TOLD HER THAT IWOULD CHECK ON PAIN MEDICATION. LAB WAS DRAWN AND THEN WHEN I WENT BACK INTO ROOM WITH HER MEDS SHE WAS STILL IN BED AND I TOLD HER THAT SHE REALLY NEEDED TO GET UP AND WALK AND SHE SAID THAT SHE HAD WENT TO BATHROOM AND I TOLD HER THAT WAS NOT ENOUGH AND ENCOURAGED HER TO GET UP AND WALK A FEW LAPS IN THE HALLWAY AND EXPLAINED TO HER WHY AND SHE VOICED UNDERSTANDING.
--- NOTE | 2024-12-06 08:51 | PM.OBGYHP ---
Providers/Chief Complaint Admitting Physician: Luc Orr MD Primary Care Provider: Daniel Eden MD Chief Complaint: Elevated Bp, shoulder pain HPI VIROLOGIST History of Present Illness Janelle Cueva is a 24 year old female who presented to the ER last night complaining of elevated blood pressures. She had been discharged from the hospital yesterday status post repeat section and tubal ligation. She had arrived to the hospital the day prior to that complaint of elevated blood pressures, headache and right shoulder pain. Initially, she was found to have elevated blood pressures, as well as a protein creatinine ratio that was elevated as well. Despite that, she had become mildly hypotensive prior to surgery. Postoperatively, her blood pressures were normal or mildly elevated. She had no blood pressures in the severe range. Her urine output was excellent. She had no other symptoms of preeclampsia at that time. Because she had signs consistent blood pressures, the patient desired to be discharged home that evening, and decision was made to proceed with discharge. Last night she had a headache, and was feeling bad. As result she checked her blood pressure and it was found to have a systolic greater than 180. She came to the ER for further evaluation. She was once again noted to have severe blood pressures. As result the decision was made to admit the patient and placed her on magnesium sulfate, and monitor her for worsening of preeclamptic symptoms. Throughout the process it is been noted by the nurses and myself that anxiety is played a major role in elevated blood pressures. When we are able to control her anxiety, her blood pressures normalize rapidly. Present Details : 2 Para: 1 Labs Rubella: Immune RPR: Negative GBS: Negative Specific History Indications for Section: Preeclampsia Review of Systems General: Reports: 10 or more systems reviewed and unremarkable except in HPI and below Const: Reports: fatigue; Denies: fever(s) Eyes: Denies: change in vision Card: Denies: chest pain Musc: Reports: back pain Samy/Lymph: Denies: easy bruising Medications/Allergies Home Medications ?Medication ?Instructions ?Recorded ?Confirmed ?Last Taken ?Type budesonide-formoterol HFA 160 1 inh inhalation Q12H 08/03/22 04/26/24 12/03/24 19:00 History mcg-4.5 mcg/actuation aerosol inhaler (Symbicort) albuterol sulfate 90 mcg/actuation 2 puff inhalation QID PRN 04/26/24 04/26/24 12/03/24 12:00 History aerosol inhaler (Ventolin HFA) Shortness Of Breath Or Wheezing hydrocodone 5 mg-acetaminophen 325 1 tab PO Q6H PRN Moderate To 12/05/24 Unknown Rx mg tablet Severe Pain #28 tabs ibuprofen 800 mg tablet 800 mg PO TID #45 tabs 12/05/24 Unknown Rx vits no.130-ferrous fum 1 tab PO DAILY #90 tabs 12/05/24 Unknown Rx 27 mg iron-folic acid 800 mcg tablet ( Vitamin) Allergies Allergy/AdvReac Type Severity Reaction Status Date / Time No Known Allergies Allergy Verified 04/03/24 08:12 PFSH VIROLOGIST PFSH: Medical History History of kidney stones Asthma Surgical History (Updated 12/04/24 @ 08:45 by Luc Orr MD) History of section, low transverse (01/31/17) Dx: Breech. Dr. Joseph at [facility] History of kidney surgery stent for kidney stone Family History Father Hypertension Family/Other Hypertension paternal uncle Grandfather Hypertension paternal Social History Smoking and tobacco/nicotine status: never used tobacco/nicotine Other Female Reproductive History: Hx Age of Menarche: 12 History History History 2 Term 1 0 Miscarriages/Ectopic 0 Living Children 1 Vitals/I&O/Wt Last Vital Signs Temp 98.1 F 12/05/24 08:16 Pulse 69 12/05/24 17:09 Resp 16 12/05/24 08:16 BP 144/91 12/05/24 17:09 Pulse Ox 100 12/04/24 10:45 O2 Del Method Room Air 12/04/24 08:12 Physical Exam Const: COMMON NORMALS: patient oriented x3 and alert HENMT: COMMON NORMALS: moist oral mucous membranes HEAD & SCALP: normal to inspection Chest: COMMONS NORMALS: normal inspection of the chest Resp: COMMON NORMALS: clear to auscultation bilaterally AUSCULTATION: clear to auscultation bilaterally Cardio: COMMON NORMALS: regular rate and regular rhythm RATE: regular rate RHYTHM: regular rhythm GI: INSPECTION: Yes normal to inspection and Yes other (Incision is clean dry and intact.) Extremity: COMMON NORMALS: normal to inspection GENERAL: Yes edema (Trace) Neuro: COMMON NORMALS: patient oriented x3, moves all extremities and no sensory deficits noted SENSORIUM/ORIENTATION: Yes alert Psych: COMMON NORMALS: mental status grossly normal Skin: COMMON NORMALS: no rashes or lesions noted GENERAL SKIN EXAM: no rashes or lesions noted Urinary Catheter Management: Latex Free: Cath Placed During This Visit: yes, but has since been removed by the nurse Reason for Continuing Indwelling Catheter: Decision to DC Catheter Urinary Catheter Date of Insertion: 12/04/24 Urinary Catheter Time of Insertion: 09:20 Date Urinary Catheter Removed: 12/05/24 Time Urinary Catheter Discontinued: 04:25 Data 12/05/24 16:00 Results Labs OB ([facility]): Blood Type B Negative 12/04/24 Antibody Screen Negative 12/04/24 Hct, (36-47) 32.5 % L 12/05/24 Hgb, (11.27-16.99) 11.40 g/dL 12/05/24 Rho(D) Type Rh negative 12/04/24 Plt Count, (157-399) 136 10^3/cmm L 12/05/24 Uric Acid, (2.4-5.7) 6.3 mg/dL H 12/02/24 Ser , Semi-Qnt 85408.00 mIU/mL 04/26/24 Urine Opiates Screen, (Negative) Negative ng/mL 12/04/24 Ur Barbiturates Screen, (Negative) Negative ng/mL 12/04/24 Ur Phencyclidine Scrn, (Negative) Negative ng/mL 12/04/24 Ur Amphetamines Screen, (Negative) Negative ng/mL 12/04/24 U Benzodiazepines Scrn, (Negative) Negative ng/mL 12/04/24 Urine Cocaine Screen, (Negative) Negative ng/mL 12/04/24 U Marijuana (THC) Screen, (Negative) Negative ng/mL 12/04/24 Micro Urine Specimen 12/05/24 A&P Assessment and plan 1. Preeclampsia in period: We will keep the patient on 24 hours of magnesium sulfate. She is also placed on Procardia XL p.o. Her blood pressures been excellent since she been in the hospital. Her urine output has also been excellent. I anticipate should be discharged home tomorrow morning. PDMP PDMP Reviewed: Last Reviewed 12/05/24 09:07 EDT by Luc Orr MD Attestations Medical Necessity Statement*: The condition of the patient is improving. I anticipate she will be discharged home tomorrow morning. Coding Level of Care Code Acute Code for g Fwd Diagnoses Preeclampsia in period O14.95
== END 2024-12-05 17:54 | disposition home or self-care (01) | DRG 785 ==
LOC: OPOB 09:01 → OBGYN 09:01
PROVIDERS: Admitting Provider Family Medicine; PCP Family Medicine; Visit Provider Family Medicine
PROC: 10D00Z1 Extraction of Products of Conception, Low, Open Approach (ICD-10-PCS; CPT 59514; principal; 2024-12-04 09:30)
DX: O14.94 Unspecified pre-eclampsia, complicating childbirth (principal); Z3A.38 38 weeks gestation of pregnancy; M25.511 Pain in right shoulder; Z30.09 Encounter for other general counseling and advice on contraception; Z37.0 Single live birth; O69.81X0 Labor and delivery complicated by cord around neck, without compression, not applicable or unspecified; O26.53 Maternal hypotension syndrome, third trimester; O75.89 Other specified complications of labor and delivery; J45.909 Unspecified asthma, uncomplicated; O34.211 Maternal care for low transverse scar from previous cesarean delivery; Z30.2 Encounter for sterilization
CPT/HCPCS: 36415; 51702; 59025; 59409; 80306; 81001; 82570; 84156; 85025; 85027; 85460; 86850; 86900; 88302; 90384; 96374; 96376; 99211; J1200; J1885; J2274; J2405; J3010; J3475; J3490; J7030; J7121; J9999

== ENCOUNTER 2024-12-05 22:49 | Observation (INO) | payer MEDICAID, SELFPAY ==
--- OUTSIDE RECORDS SUMMARY | 2018-01-14 03:30 | XMS_ITS | Continuity of Care Document ---
Author Organization [facility] Address [id number] [address] Phone Care Team Providers Care Commercial Litigation Associate Name Role Phone Unavailable Unavailable Unavailable Allergies, Adverse Reactions, Alerts Substance Reaction Status Criticality No Known Allergies Active No Inform ation Medications Medication Instructions Dosage Effective Dates (start - stop) Status Comments [place] 7.5 mg-325 mg tablet take 1 tablet by oral route every 6 hours as needed for breakthrough pain. Take no more than 4 in 24 hours. - Active Generic substitute is allowed Periogard 0.12 % mouthwash This is an oral rinse. Swish with one capful for 30 seconds then spit out. Twice a day. DO NOT EAT OR DRINK FOR ONE HOUR FOLLOWING. - Active Generic substitute is allowed Procedures Procedure Date Removal Of Impacted Tooth Completely Bony Removal Of Impacted Tooth Soft Tissue Removal Of Impacted Tooth Partially Bony Removal Of Impacted Tooth Partially Bony IV Moderate (conscious) Sedation/analges ia, First 15 Min IV Moderate (conscious) Sedation/analges ia, Ea Addl 15 Min EDR Approval Note Limited Oral Evaluation Problem Focused EDR Approval Note Resin-Based Composite One Surface, Posterior Resin-Based Composite One Surface, Posterior Resin-Based Composite One Surface, Posterior EDR Approval Note Amalgam One Surface, Primary Or Permanent Amalgam Two Surfaces, Primary Or Permanent EDR Approval Note Prophylaxis Adult Topical Fluoride Varnish; Therapeutic Ap plication Panoramic Film Bitewings Four Films Periodic Oral Evaluation Established Patient EDR Approval Note Bitewings Two Films Intraoral Periapical First Film Intraoral Periapical Each Additional Film Intraoral Periapical Each Additional Film Prophylaxis Child Comprehensive Oral Evaluatio n New Or Established Topical Fluoride Varnish; Therapeutic Ap plication Panoramic Film EDR Approval Note MEASURE BLOOD OXYGEN LEVEL ALBUTEROL INHAL UNIT DOSE 1 MG EST-DETAIL/MOD COMPLEXITY Xopenex NEW-DETAIL/LOW COMPLEXITY STREP A ASSAY W/OPTIC Advance Directives Directive Yes / No Effective Date File Name No Information Encounters Encounter Description Practice Location Reason(s) For Visit Diagnoses Date Provider Providers Copied on Encounter [facility], [id number] [place], [place], [id number], [place] tel:[phone] [facility] Encounter for dental exam and cleaning w/o abnormal findings 8 No Information [facility], [id number] [place], [place], [id number], [place] tel:[phone] [facility] Encounter for dental exam and cleaning w/o abnormal findings 8 No Information [facility], [id number] [place], [place], [id number], [place] tel:[phone] [facility] Dental examination 5 No Information [facility], [id number] [facility], [place], [place], [id number], [place] tel:[phone] [facility] Dental examination 4 No Information [facility], [id number] [facility], [place], [place], [id number], [place] tel:[phone] [facility] Dental examination 4 No Information [facility], [id number] [facility], [place], [place], [id number], [place] tel:[phone] [facility] examination 2 No Information EST-DETAIL/[place] D [facility], [id number] [facility], [place], [place], [id number], [place] tel:[phone] Family Medicine F1 No Information 7 No Information NEW-DETAIL/LO W [facility], [id number] [facility], [place], [place], [address], [place] tel:[phone] Family [facility] F1 No Information 7 No Information Family History Family Member Type Diagnosis Age At Onset Mother Problem (finding) Alive and well Payers Payer name Insurance type Covered democrat ID Authorradhaa boubacar(s) D [employer] CI [id number] Social History Type Description Quantity Date Captured Comments Alcohol Use Details No Caffeine Use Details Unknown Tobacco Use Status No Information Smoking Status No Information Sex Female Chief Complaint And Reason For Visit No Information Reason For Referral Reason For Referral No Information Plan Of Treatment Date Type Action Status Goal Tobacco cessation counseling completed Goal Tobacco cessation counseling completed History Of Present Illness Encounter Date Complaint History Of Prese nt Illness No Information Functional Status Date Functional Assessmen t No Information Instructions Date Instruction Additional Infor mation Lifestyle education Related to D ental Examination Lifestyle education Related to D ental Examination Lifestyle education Related to D ental Examination Benefits of flouride Assessments Type Assessment Date No Information Patient Care Teams Name Effective Dates (start - stop) Status Members No Information
[2024-12-05 22:54] VITALS: BP 162/102; PULSE 108; RESP 18; TEMP 37.3; O2SAT 98; BMI 27.8
--- OUTSIDE RECORDS SUMMARY | 2024-12-05 22:58 | XMS_ITS | Clinical Summary ---
Author Organization [facility] Address [address] Attn: Epic Prelude ADT [place] [id number] Care Team Providers Care Price Changer Name Role Phone Daniel Eden MD Primary Care Provider [phone] Allergies No known active allergies Medications CEPHALEXIN HCL ORAL Take by mouth 2 times daily. Active budesonide/form oterol fumarate (SYMBICORT INHALATION) Take by inhalation. Active albuterol sulfate HFA 90 mcg/actuation aerosol inhaler Take 2 Puffs by inhalation every 6 hours as needed for Shortness of Breath. Active Social History Tobacco Use Types Packs/Day Years Used Date Smoking Tobacco: Never Smokeless Tobacco: Never Alcohol Use Standard Drinks/Week Comments No 0 (1 standard drink = 0.6 oz pur e alcohol) Feeling Safe Answer Date Recorded Are you in a relationship wi th someone who hurts you emotionally and/or physically? 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 Gender Identity Not on file Sexual Orientation Not on file Last Filed Vital Signs Vital Sign Reading Time Taken Comments Blood Pressure 131/62 11/03/2023 5:13 PM CDT Pulse 82 07/20/2014 11:03 AM COMPRESS ENGINEER Temperature 36.3 C (97.3 F) 11/03/2023 5:13 PM CDT Respiratory Rate 14 11/03/2023 5:13 PM CDT Oxygen Saturation 100% 11/03/2023 5:13 PM CDT Inhaled Oxygen Concentration - - Weight 54.4 kg (120 lb) 11/03/2023 2:38 PM CDT Height 160 cm (5' 3 ) 11/03/2023 2:38 PM CDT Body Mass Index 21.26 11/03/2023 2:38 PM CDT Plan of Treatment Health Maintenance Due Date Last Done Comments HPV VACCINES (1 - 3-dose series) 2014 DTAP/TDAP/TD VACCINES (1 - Tdap) 2018 HEPATITIS B VACCINES (1 of 3 - 19+ 3-dose series) 03/28 CERVICAL CANCER SCREENING 2020 HPV/Cotest (21-29) 2020 PAP SMEAR 2020 INFLUENZA VACCINE (#1) 2024 Insurance [employer] Care Teams Price Changer Relationship Specialty Start Date End Date Daniel Eden MD [address] [id number] PCP - General Family Practice 11/03/23
[2024-12-05 23:02] VITALS: BP 148/92; PULSE 105; RESP 16; O2SAT 97
--- NOTE | 2024-12-05 23:10 | ECG_ITS ---
[facility]: 2024-12-05 Pat Name: Janelle Cueva Department: Room: Gender: Female Geriatric Case Manager: : 2000 Requested By: Ginger Dave Order Number: [id number] Hong MD: Jorge Saenz M.D. Measurements Intervals [place] Rate: 94 P: 72 WI: 139 QRS: 88 QRSD: 86 T: 68 QT: 330 QTc: 414 Interpretive Statements SINUS RHYTHM POSSIBLE RIGHT VENTRICULAR CONDUCTION DELAY [RSR (QR) IN V1/V2] No previous ECG available for comparison Electronically Signed On 12-09-2024 14:58:50 CDT by Jorge Saenz M.D. [email or web address]
[2024-12-05 23:18] LABS: Hematocrit 32.5 % (36-47); Hemoglobin 11.40 g/dL (11.27-16.99); Mean Corpuscular HGB Conc 35.1 g/dL (30-55); Mean Corpuscular Hemoglobin 32.9 pg (27-33); Mean Corpuscular Volume 93.7 fl (85-98); Nucleated Red Blood Cells % 0 %; Platelet Count 136 10^3/cmm (157-399); Red Blood Count 3.47 10^6/uL (3.85-5.65); White Blood Count 8.75 10^3/uL (3.29-11.43)
--- NOTE | 2024-12-05 23:30 | ED_ITS ---
Documented by User: ARIELLE Bloom 12/06/24 02:43 HPI - Syncope 2 General: Chief Complaint: Syncope Stated Complaint: Syncope, HTN Time Seen by Provider: 12/05/24 22:57 History of Present Illness: Patient is 24-year-old female status post x 1 day, , released from hospital today at 6 PM that presented with dizziness, headache, and pain, lower extremity edema, elevated blood pressure. Patient was not sent home with blood pressure medication. Patient was spilling proteins in urine prior to section, and was considered preeclamptic. Blood pressure improved after delivery per patient information. Associated symptoms: Reports headache(s); Deny abdominal pain, chest pain, fever(s) or nausea Related Data Home Medications ?Medication ?Instructions ?Recorded ?Confirmed budesonide-formoterol HFA 160 1 inh inhalation Q12H 04/26/24 mcg-4.5 mcg/actuation aerosol inhaler (Symbicort) albuterol sulfate 90 mcg/actuation 2 puff inhalation Q ID PRN 04/26/24 04/26/24 aerosol inhaler (Ventolin HFA) Shortness Of Breath Or Wheezing Previous Rx's ?Medication ?Instructions ?Recorded hydrocodone 5 mg-acetaminophen 325 1 tab PO Q6H PRN Mo derate To 12/05/24 mg tablet Severe Pain #28 tabs ibuprofen 800 mg tablet 800 mg PO TID #45 tabs 12/05 vits no.130-ferrous fum 1 tab PO DAILY #90 ta bs 12/05/24 27 mg iron-folic acid 800 mcg tablet ( Vitamin) Allergies Allergy/AdvReac Type Severity Reaction Status Date / Time No Known Allergies Allergy Verified 04/03/24 08:12 Review of Systems 2 General: Reports: 10 or more systems reviewed and unremarkable except in HPI and below Const: Denies: fever(s) or chills Eyes: Reports: change in vision and blurry vision; Denies: eye discomfort or eye discharge ENMT: Denies: throat pain or mouth pain Card: Denies: chest pain or palpitations Resp: Denies: dyspnea or productive cough GI: Denies: abdominal pain, nausea or vomiting : Denies: flank pain, difficulty voiding or urinary frequency Musc: Denies: neck pain, back pain, extremity pain or muscle weakness Skin/Breast: Denies: rash, pruritus or erythema Neuro: Reports: headache(s) and dizziness; Denies: numbness in extremities or lack of coordination Psych: Reports: anxiety; Denies: depression Endo: Denies: polyuria or polydipsia Samy/Lymph: Denies: easy bruising or easy bleeding All/Imm: Denies: urticaria or throat swelling PFSH ED 2 PFSH: Medical History (Updated 12/06/24 @ 08:57 by Luc Orr MD) History of kidney stones Asthma Surgical History (Updated 12/04/24 @ 08:45 by Luc Orr MD) History of section, low transverse (01/31/17) Dx: Breech. Dr. Joseph at [facility] History of kidney surgery stent for kidney stone Family History Father Hypertension Family/Other Hypertension paternal uncle Grandfather Hypertension paternal Social History Smoking and tobacco/nicotine status: never used tobacco/nicotine Physical Exam 2 Const: COMMON NORMALS: no acute distress, average body habitus and patient oriented x3 HENMT: COMMON NORMALS: normocephalic and atraumatic HEAD & SCALP: n ormocephalic and atraumatic Eye: COMMON NORMALS: Equal, round and reactive pupils present and EOMs intact bilaterally PUPIL: Yes Equal, round and reactive pupils present Neck/C-Spine: COMMON NORMALS: full ROM and no lymphadenopathy Lymph: LYMPHATIC: no lymphadenopathy noted Chest: COMMONS NORMALS: normal inspection of the chest and normal palpation of entire chest wall Resp: COMMON NORMALS: normal respiratory effort and No retractions Cardio: COMMON NORMALS: regular rate, regular rhythm and S2 normal heart sound present RATE: regular rate RHYTHM: regular rhythm HEART SOUNDS: S2 normal heart sound present and Murmur heart sound present systolic (ejection) GI: COMMON NORMALS: Normal to inspection, nondistended, normoactive bowel sounds present : COMMON NORMALS: Yes no CVA tenderness BLADDER/KIDNEY EXAM: Yes no CVA tenderness Back/Pelvis: COMMON NORMALS: no CVA tenderness Extremity: COMMON NORMALS: normal to inspection, full ROM and capillary refill normal Neuro: COMMON NORMALS: patient oriented x3 Psych: COMMON NORMALS: mental status grossly normal and Normal thought process present THOUGHT PROCESS: Normal thought process present Skin: COMMON NORMALS: no rashes or lesions noted and no wounds GENERAL SKIN EXAM: no rashes or lesions noted Course 2 Reevaluation(s): Reevaluation #1: Improved blood pressure, no headache. Consultations: Consultation #1: D/w Dr. Orr: Give additional 2 g of magnesium right now, then magnesium 2 g/h IV, Procardia XL 60 mg p.o. now, and send to OB for observation for hypertensive adjustment protocol. Vital Signs: Vital signs: Vital Signs Temperature 98.1 F 12/06/24 16:55 Pulse Rate 87 12/06/24 19:34 Respiratory Rate 15 12/06/24 16:55 Blood Pressure 123/64 12/06/24 19:34 Pulse Oximetry 98 12/06/24 02:53 Oxygen Delivery Me thod Room Air 12/06/24 03:14 MDM - Syncope Medical Decision Making Patient is a 24-year-old female that had preeclampsia, delivered via 12/04, discharged on 12/05 at 1800 that returns to the ED with dizziness, headache, and elevated blood pressure of undefined nature at home. Lab Data 12/05/24 22:40 12/05/24 22:40 Laboratory Results WBC 8.75 10^3/uL (3.29-11.43) 12/05/24 22:40 RBC 3.47 10^6/uL (3.85-5.65) L 12/05/24 22:40 Hgb 11.40 g/dL (11.27-16.99) 12/05/24 22:40 Hct 32.5 % (36-47) L 12/05/24 22:40 MCV 93.7 fl (85-98) 12/05/24 22:40 MCH 32.9 pg (27-33) 12/05/24 22:40 MCHC 35.1 g/dL (30-55) 12/05/24 22:40 RDW 13.0 % (12.1-15.1) 12/05/24 22:40 Plt Count 136 10^3/cmm (157-399) L 12/05/24 22:40 MPV 11.9 fL (7.4-10.4) H 12/05/24 22:40 Neut % (Auto) 68.6 % 12/05/24 22:40 Lymph % (Auto) 22.5 % 12/05/24 22:40 [place] % (Auto) 6.4 % 12/05/24 22:40 Eos % (Auto) 1.7 % 12/05/24 22:40 Baso % (Auto) 0.6 % 12/05/24 22:40 Neut # (Auto) 6.00 10^3/uL (1.8-7.7) 12/05/24 22:40 Lymph # (Auto) 2.0 10^3/uL (0.8-4.8) 12/05/24 22:40 [place] # (Auto) 0.6 10^3/uL (0.2-0.9) 12/05/24 22:40 Eos # (Auto) 0.2 10^3/uL (0.0-0.8) 12/05/24 22:40 Baso # (Auto) 0.1 10^3/uL (0.0-0.1) 12/05/24 22:40 Nucleated RBC % (auto) 0 % 12/05/24 22:40 Nucleated RBCs # 0.0 /100WBC 12/05/24 22:40 Sodium 137 mmol/L (136-145) 12/05/24 22:40 Potassium 4.0 mmol/L (3.5-5.1) 12/05/24 22:40 Chloride 101 mmol/L (98-107) 12/05/24 22:40 Carbon Dioxide 23 mmol/L (22-29) 12/05/24 22:40 Anion Gap 17.0 (5-19) 12/05/24 22:40 BUN 12 mg/dL (6-20) 12/05/24 22:40 Creatinine 0.7 mg/dL (0.5-0.9) 12/05/24 22:40 GFR Calculation 102.0 mL/min (90-130) 12/05/24 22:40 Glucose 90 mg/dL (65-115) 12/05/24 22:40 Calculated Osmolality 283 mOsm/kg (285-295) L 12/05/24 22:40 Calcium 8.9 mg/dL (8.5-10.5) 12/05/24 22:40 Magnesium 1.6 mg/dL (1.7-2.3) L 12/05/24 22:40 Total Bilirubin 0.2 mg/dL (0.15-1.2) 12/05/24 22:40 AST 43 U/L (0-32) H 12/05/24 22:40 ALT 47 U/L (0-33) H 12/05/24 22:40 Alkaline Phosphatase 115 U/L (35-105) H 12/05/24 22:40 C-Reactive Protein 46.1 mg/L (0.0-4.9) H 12/05/24 22:40 Total Protein 6.2 g/dL (6.6-8.7) L 12/05/24 22:40 Albumin 3.2 g/dL (3.5-5.2) L 12/05/24 22:40 Globulin 3.0 g/dL (1.3-4.6) 12/05/24 22:40 Urine Color Yellow (Yellow) 12/05/24 23:59 Urine Appearance Clear (CLEAR) 12/05/24 23:59 Urine pH 6.5 (5-7) 12/05/24 23:59 Ur Specific [place] 1.008 (1.005-1.030) 12/05/24 23:59 Urine Protein Negative (Negative) 12/05/24 23:59 Urine Glucose (UA) Negative (Normal) 12/05/24 23:59 Urine Ketones Negative (Negative) 12/05/24 23:59 Urine Blood 3+ (Negative) A 12/05/24 23:59 Urine Nitrate Negative (Negative) 12/05/24 23:59 Urine Bilirubin Negative (Negative) 12/05/24 23:59 Urine Urobilinogen 0.2 mg/dL (Negative) 12/05/24 23:59 Ur Leukocyte Esterase Negative (Negative) 12/05/24 23:59 Urine RBC >100 /hpf (0-2) H 12/05/24 23:59 Urine WBC 0-5 /hpf (0-5) 12/05/24 23:59 Ur Squamous Epith Cells 0-5 /hpf (0-5) 12/05/24 23:59 Amorphous Sediment Not Reportable 12/05/24 23:59 Urine Bacteria None seen /hpf (NONE) 12/05/24 23:59 Hyaline Casts 0.81 /lpf 12/05/24 23:59 U Random Total Protein 7 mg/dL 12/05/24 23:59 U Random Total Protein 7 mg/dL 12/05/24 23:59 Urine Creatinine 30 mg/dL (28-217) 12/05/24 23:59 Protein/Creatinin Ratio 0.23 mg/mg CR 12/05/24 23:59 No radiology studies performed this visit EKG Data EKG 1: Interpretation: Normal sinus rhythm, normal axis, no ST segment elevation Discharge Plan Discharge Patient Disposition: Placed in Observation Admit Provider: Luc Orr Clinical Impression: Hypertension in , delivered with condition, Hypomagnesemia Discharge Diet: Low Salt Coding Level of Care Code ED Technical Sales Engineer for Chg Fwd Documented by User: Sloo Garcia DO 12/06/24 20:26 HPI - Syncope 2 General: Chief Complaint: Syncope Stated Complaint: Syncope, HTN Time Seen by Provider: 12/05/24 22:57 Related Data Home Medications ?Medication ?Instructions ?Recorded ?Confirmed budesonide-formoterol HFA 160 1 inh inhalation Q12H 04/26/24 mcg-4.5 mcg/actuation aerosol inhaler (Symbicort) albuterol sulfate 90 mcg/actuation 2 puff inhalation Q ID PRN 04/26/24 04/26/24 aerosol inhaler (Ventolin HFA) Shortness Of Breath Or Wheezing Previous Rx's ?Medication ?Instructions ?Recorded hydrocodone 5 mg-acetaminophen 325 1 tab PO Q6H PRN Mo derate To 12/05/24 mg tablet Severe Pain #28 tabs ibuprofen 800 mg tablet 800 mg PO TID #45 tabs 12/05 vits no.130-ferrous fum 1 tab PO DAILY #90 ta bs 12/05/24 27 mg iron-folic acid 800 mcg tablet ( Vitamin) Allergies Allergy/AdvReac Type Severity Reaction Status Date / Time No Known Allergies Allergy Verified 04/03/24 08:12 [facility] ED 2 PFS: Medical History (Updated 12/06/24 @ 08:57 by Luc Orr MD) History of kidney stones Asthma Surgical History (Updated 12/04/24 @ 08:45 by Luc Orr MD) History of section, low transverse (01/31/17) Dx: Breech. Dr. Joseph at [facility] History of kidney surgery stent for kidney stone Family History Father Hypertension Family/Other Hypertension paternal uncle Grandfather Hypertension paternal Social History Smoking and tobacco/nicotine status: never used tobacco/nicotine Course 2 Vital Signs: Vital signs: Vital Signs Temperature 98.1 F 12/06/24 16:55 Pulse Rate 87 12/06/24 19:34 Respiratory Rate 15 12/06/24 16:55 Blood Pressure 123/64 12/06/24 19:34 Pulse Oximetry 98 12/06/24 02:53 Oxygen Delivery Me thod Room Air 12/06/24 03:14 MDM - Syncope Medical Decision Making Patient is a 24-year-old female that had preeclampsia, delivered via 12/04, discharged on 12/05 at 1800 that returns to the ED with dizziness, headache, and elevated blood pressure of undefined nature at home. This patient was originally seen by Mrs. Sagastume, ARIELLE?C. I agree with her history, evaluation, and management. Patient will be admitted to OB for magnesium infusion given hypertension. Her museum educator was contacted by the PA, and agrees. Orders been written Lab Data 12/05/24 22:40 12/05/24 22:40 Laboratory Results WBC 8.75 10^3/uL (3.29-11.43) 12/05/24 22:40 RBC 3.47 10^6/uL (3.85-5.65) L 12/05/24 22:40 Hgb 11.40 g/dL (11.27-16.99) 12/05/24 22:40 Hct 32.5 % (36-47) L 12/05/24 22:40 MCV 93.7 fl (85-98) 12/05/24 22:40 MCH 32.9 pg (27-33) 12/05/24 22:40 MCHC 35.1 g/dL (30-55) 12/05/24 22:40 RDW 13.0 % (12.1-15.1) 12/05/24 22:40 Plt Count 136 10^3/cmm (157-399) L 12/05/24 22:40 MPV 11.9 fL (7.4-10.4) H 12/05/24 22:40 Neut % (Auto) 68.6 % 12/05/24 22:40 Lymph % (Auto) 22.5 % 12/05/24 22:40 [place] % (Auto) 6.4 % 12/05/24 22:40 Eos % (Auto) 1.7 % 12/05/24 22:40 Baso % (Auto) 0.6 % 12/05/24 22:40 Neut # (Auto) 6.00 10^3/uL (1.8-7.7) 12/05/24 22:40 Lymph # (Auto) 2.0 10^3/uL (0.8-4.8) 12/05/24 22:40 [place] # (Auto) 0.6 10^3/uL (0.2-0.9) 12/05/24 22:40 Eos # (Auto) 0.2 10^3/uL (0.0-0.8) 12/05/24 22:40 Baso # (Auto) 0.1 10^3/uL (0.0-0.1) 12/05/24 22:40 Nucleated RBC % (auto) 0 % 12/05/24 22:40 Nucleated RBCs # 0.0 /100WBC 12/05/24 22:40 Sodium 137 mmol/L (136-145) 12/05/24 22:40 Potassium 4.0 mmol/L (3.5-5.1) 12/05/24 22:40 Chloride 101 mmol/L (98-107) 12/05/24 22:40 Carbon Dioxide 23 mmol/L (22-29) 12/05/24 22:40 Anion Gap 17.0 (5-19) 12/05/24 22:40 BUN 12 mg/dL (6-20) 12/05/24 22:40 Creatinine 0.7 mg/dL (0.5-0.9) 12/05/24 22:40 GFR Calculation 102.0 mL/min (90-130) 12/05/24 22:40 Glucose 90 mg/dL (65-115) 12/05/24 22:40 Calculated Osmolality 283 mOsm/kg (285-295) L 12/05/24 22:40 Calcium 8.9 mg/dL (8.5-10.5) 12/05/24 22:40 Magnesium 1.6 mg/dL (1.7-2.3) L 12/05/24 22:40 Total Bilirubin 0.2 mg/dL (0.15-1.2) 12/05/24 22:40 AST 43 U/L (0-32) H 12/05/24 22:40 ALT 47 U/L (0-33) H 12/05/24 22:40 Alkaline Phosphatase 115 U/L (35-105) H 12/05/24 22:40 C-Reactive Protein 46.1 mg/L (0.0-4.9) H 12/05/24 22:40 Total Protein 6.2 g/dL (6.6-8.7) L 12/05/24 22:40 Albumin 3.2 g/dL (3.5-5.2) L 12/05/24 22:40 Globulin 3.0 g/dL (1.3-4.6) 12/05/24 22:40 Urine Color Yellow (Yellow) 12/05/24 23:59 Urine Appearance Clear (CLEAR) 12/05/24 23:59 Urine pH 6.5 (5-7) 12/05/24 23:59 Ur Specific [place] 1.008 (1.005-1.030) 12/05/24 23:59 Urine Protein Negative (Negative) 12/05/24 23:59 Urine Glucose (UA) Negative (Normal) 12/05/24 23:59 Urine Ketones Negative (Negative) 12/05/24 23:59 Urine Blood 3+ (Negative) A 12/05/24 23:59 Urine Nitrate Negative (Negative) 12/05/24 23:59 Urine Bilirubin Negative (Negative) 12/05/24 23:59 Urine Urobilinogen 0.2 mg/dL (Negative) 12/05/24 23:59 Ur Leukocyte Esterase Negative (Negative) 12/05/24 23:59 Urine RBC >100 /hpf (0-2) H 12/05/24 23:59 Urine WBC 0-5 /hpf (0-5) 12/05/24 23:59 Ur Squamous Epith Cells 0-5 /hpf (0-5) 12/05/24 23:59 Amorphous Sediment Not Reportable 12/05/24 23:59 Urine Bacteria None seen /hpf (NONE) 12/05/24 23:59 Hyaline Casts 0.81 /lpf 12/05/24 23:59 U Random Total Protein 7 mg/dL 12/05/24 23:59 U Random Total Protein 7 mg/dL 12/05/24 23:59 Urine Creatinine 30 mg/dL (28-217) 12/05/24 23:59 Protein/Creatinin Ratio 0.23 mg/mg CR 12/05/24 23:59 Discharge Plan Discharge Patient Disposition: Placed in Observation Admit Provider: Luc Orr Clinical Impression: Hypertension in , delivered with condition, Hypomagnesemia Discharge Diet: Low Salt Coding Level of Care Code ED Technical Sales Engineer for Chg Lana
[2024-12-05 23:36] LABS: Alanine Aminotransferase 47 U/L (0-33); Albumin Level 3.2 g/dL (3.5-5.2); Alkaline Phosphatase 115 U/L (35-105); Anion Gap 17.0 (5-19); Aspartate Amino Transferase 43 U/L (0-32); Blood Urea Nitrogen 12 mg/dL (6-20); Calcium 8.9 mg/dL (8.5-10.5); Carbon Dioxide 23 mmol/L (22-29); Chloride 101 mmol/L (98-107); Creatinine Clr Calc Pharmacy 116.2248; Globulin 3.0 g/dL (1.3-4.6); Glucose 90 mg/dL (65-115); Magnesium 1.6 mg/dL (1.7-2.3); Osmolality Calculated 283 mOsm/kg (285-295); Potassium 4.0 mmol/L (3.5-5.1); Sodium 137 mmol/L (136-145); Total Protein 6.2 g/dL (6.6-8.7)
[2024-12-06] VITALS (40 sets, daily range): BP systolic 104–148; BP diastolic 55–94; PULSE 54–107; RESP 15–16; TEMP 36.7–37.2; O2SAT 97–98
[2024-12-06] MEDS: labetalol 5 mg/mL SDV 20mL 20 MG IVP (00:06)
[2024-12-06] MEDS: magnesium sulfate premix 2 GM/50 ML PIGGYBACK IV ×2 (00:48→02:28)
[2024-12-06 00:59] LABS: Glucose Urine UA Negative (Normal); Nitrate Urine Negative (Negative); Specific Gravity, Urine 1.008 (1.005-1.030)
[2024-12-06 01:04] LABS: Add Urine Microscopic? YES
[2024-12-06] MEDS: NIFEdipine ER (24 hr) 30 mg Tablet 60 MG PO ×2 (02:27→21:19)
[2024-12-06 03:11] LABS: UPRO/UCREAT Ratio 0.23 mg/mg CR
[2024-12-06] MEDS: magnesium sulfate premix 20 GM/500 ML BAG IV ×2 (03:49→14:27)
[2024-12-06] MEDS: HYDROcodone-acetaminophen 5-325 mg Tablet PO ×2 (12:56→19:27)
[2024-12-07] VITALS (9 sets, daily range): BP systolic 124–137; BP diastolic 59–89; PULSE 78–103; RESP 16; TEMP 36.1
[2024-12-07] MEDS: magnesium sulfate premix 20 GM/500 ML BAG IV (00:28)
[2024-12-07] MEDS: HYDROcodone-acetaminophen 5-325 mg Tablet PO ×2 (01:25→08:20)
--- NOTE | 2024-12-07 06:37 | PM.OBGYDC ---
Discharge Providers [employer]ER Date of Admission: 12/06/24 02:42 Date of Discharge: 12/07/24 Attending Provider at Admission: Luc Orr MD Attending Provider at Discharge: Luc Orr MD Primary Care Provider: Luc Orr Reason for Visit Reason for Visit: Syncope, HTN Hospital Course Hospital Course The patient presented to the hospital due to elevated blood pressures, and headache. She was seen in the ER where her blood pressures were noted to be in the severe range. She was placed on Procardia 60 mg XL, and her blood pressure resolved appropriately. She was placed on magnesium for 24 hours. Her blood pressures were within the normal range throughout her hospital stay. She had no other significant symptoms of preeclampsia. Her urine output was excellent throughout her hospital stay. Physical Exam Narrative: She is in no acute distress Lungs are clear auscultation bilaterally Her heart has a regular rate and rhythm Her fundus is below the umbilicus and firm Her dressing is clean, dry and intact Her extremities have trace edema Urinary Catheter Management: Arce: Cath Placed During This Visit: yes Urinary Catheter Date of Insertion: 12/06/24 Urinary Catheter Time of Insertion: 03:10 History History History 2 Term 2 0 Miscarriages/Ectopic 0 Living Children 2 Discharge Data Studies Completed and Pending Pending at discharge Category Date Time Status Urine Culture Stat Lab 12/05/24 23:59 Received Laboratory Results WBC 8.75 10^3/uL (3.29-11.43) 12/05/24 22:40 RBC 3.47 10^6/uL (3.85-5.65) L 12/05/24 22:40 Hgb 11.40 g/dL (11.27-16.99) 12/05/24 22:40 Hct 32.5 % (36-47) L 12/05/24 22:40 MCV 93.7 fl (85-98) 12/05/24 22:40 MCH 32.9 pg (27-33) 12/05/24 22:40 MCHC 35.1 g/dL (30-55) 12/05/24 22:40 RDW 13.0 % (12.1-15.1) 12/05/24 22:40 Plt Count 136 10^3/cmm (157-399) L 12/05/24 22:40 MPV 11.9 fL (7.4-10.4) H 12/05/24 22:40 Neut % (Auto) 68.6 % 12/05/24 22:40 Lymph % (Auto) 22.5 % 12/05/24 22:40 [place] % (Auto) 6.4 % 12/05/24 22:40 Eos % (Auto) 1.7 % 12/05/24 22:40 Baso % (Auto) 0.6 % 12/05/24 22:40 Neut # (Auto) 6.00 10^3/uL (1.8-7.7) 12/05/24 22:40 Lymph # (Auto) 2.0 10^3/uL (0.8-4.8) 12/05/24 22:40 [place] # (Auto) 0.6 10^3/uL (0.2-0.9) 12/05/24 22:40 Eos # (Auto) 0.2 10^3/uL (0.0-0.8) 12/05/24 22:40 Baso # (Auto) 0.1 10^3/uL (0.0-0.1) 12/05/24 22:40 Nucleated RBC % (auto) 0 % 12/05/24 22:40 Nucleated RBCs # 0.0 /100WBC 12/05/24 22:40 Sodium 137 mmol/L (136-145) 12/05/24 22:40 Potassium 4.0 mmol/L (3.5-5.1) 12/05/24 22:40 Chloride 101 mmol/L (98-107) 12/05/24 22:40 Carbon Dioxide 23 mmol/L (22-29) 12/05/24 22:40 Anion Gap 17.0 (5-19) 12/05/24 22:40 BUN 12 mg/dL (6-20) 12/05/24 22:40 Creatinine 0.7 mg/dL (0.5-0.9) 12/05/24 22:40 GFR Calculation 102.0 mL/min (90-130) 12/05/24 22:40 Glucose 90 mg/dL (65-115) 12/05/24 22:40 Calculated Osmolality 283 mOsm/kg (285-295) L 12/05/24 22:40 Calcium 8.9 mg/dL (8.5-10.5) 12/05/24 22:40 Magnesium 1.6 mg/dL (1.7-2.3) L 12/05/24 22:40 Total Bilirubin 0.2 mg/dL (0.15-1.2) 12/05/24 22:40 AST 43 U/L (0-32) H 12/05/24 22:40 ALT 47 U/L (0-33) H 12/05/24 22:40 Alkaline Phosphatase 115 U/L (35-105) H 12/05/24 22:40 C-Reactive Protein 46.1 mg/L (0.0-4.9) H 12/05/24 22:40 Total Protein 6.2 g/dL (6.6-8.7) L 12/05/24 22:40 Albumin 3.2 g/dL (3.5-5.2) L 12/05/24 22:40 Globulin 3.0 g/dL (1.3-4.6) 12/05/24 22:40 Urine Color Yellow (Yellow) 12/05/24 23:59 Urine Appearance Clear (CLEAR) 12/05/24 23:59 Urine pH 6.5 (5-7) 12/05/24 23:59 Ur Specific [place] 1.008 (1.005-1.030) 12/05/24 23:59 Urine Protein Negative (Negative) 12/05/24 23:59 Urine Glucose (UA) Negative (Normal) 12/05/24 23:59 Urine Ketones Negative (Negative) 12/05/24 23:59 Urine Blood 3+ (Negative) A 12/05/24 23:59 Urine Nitrate Negative (Negative) 12/05/24 23:59 Urine Bilirubin Negative (Negative) 12/05/24 23:59 Urine Urobilinogen 0.2 mg/dL (Negative) 12/05/24 23:59 Ur Leukocyte Esterase Negative (Negative) 12/05/24 23:59 Urine RBC >100 /hpf (0-2) H 12/05/24 23:59 Urine WBC 0-5 /hpf (0-5) 12/05/24 23:59 Ur Squamous Epith Cells 0-5 /hpf (0-5) 12/05/24 23:59 Amorphous Sediment Not Reportable 12/05/24 23:59 Urine Bacteria None seen /hpf (NONE) 12/05/24 23:59 Hyaline Casts 0.81 /lpf 12/05/24 23:59 U Random Total Protein 7 mg/dL 12/05/24 23:59 U Random Total Protein 7 mg/dL 12/05/24 23:59 Urine Creatinine 30 mg/dL (28-217) 12/05/24 23:59 Protein/Creatinin Ratio 0.23 mg/mg CR 12/05/24 23:59 Vitals Last Vital Signs Temp 98.1 F 12/06/24 16:55 Pulse 78 12/07/24 04:34 Resp 16 12/07/24 00:27 BP 124/59 12/07/24 04:34 Pulse Ox 98 12/06/24 02:53 O2 Del Method Room Air 12/06/24 03:14 Results Labs OB ([facility]): Blood Type B Negative 12/04/24 Antibody Screen Negative 12/04/24 Hct, (36-47) 32.5 % L 12/05/24 Hgb, (11.27-16.99) 11.40 g/dL 12/05/24 Rho(D) Type Rh negative 12/04/24 Plt Count, (157-399) 136 10^3/cmm L 12/05/24 Uric Acid, (2.4-5.7) 6.3 mg/dL H 12/02/24 Ser , Semi-Qnt 40373.00 mIU/mL 04/26/24 Urine Opiates Screen, (Negative) Negative ng/mL 12/04/24 Ur Barbiturates Screen, (Negative) Negative ng/mL 12/04/24 Ur Phencyclidine Scrn, (Negative) Negative ng/mL 12/04/24 Ur Amphetamines Screen, (Negative) Negative ng/mL 12/04/24 U Benzodiazepines Scrn, (Negative) Negative ng/mL 12/04/24 Urine Cocaine Screen, (Negative) Negative ng/mL 12/04/24 U Marijuana (THC) Screen, (Negative) Negative ng/mL 12/04/24 Micro Urine Specimen 12/05/24 Discharge Plan Discharge Patient Disposition: Home Condition: Stable Prescriptions: No Action budesonide-formoterol [Symbicort] 160-4.5 mcg/actuation HFA aerosol inhaler 1 inh inhalation Q12H albuterol sulfate [Ventolin HFA] 90 mcg/actuation HFA aerosol inhaler 2 puff INHALATION QID PRN (Reason: Shortness Of Breath Or Wheezing) ibuprofen 800 mg Tablet 800 mg PO TID Qty: 45 0RF hydrocodone-acetaminophen 5-325 mg Tablet 1 tab PO Q6H PRN (Reason: Moderate To Severe Pain) Qty: 28 0RF Vitamin 27 mg iron- 800 mcg Tablet 1 tab PO DAILY Qty: 90 0RF Discharge Order = DC NOW: Discharge Order (Routine); Ordered 12/07/24 Ordered By: Luc Orr Referrals: Daniel Eden MD [Primary Care Provider, [facility]] Luc Orr MD [Physician, Family Practice] Referral Note: Keep appointment that has already been set up below Discharge Diet: Advance as tolerated Discharge Activity: Limit activity as instructed Patient Instructions: DASH Eating Plan (ED), Opioid Safety, Patient Portal & Swathi Instructions Discharge Attestations [employer] Time Spent in Discharge Care*: less than 30 min Coding Level of Care Code Acute Code for Chg Fwfelicitas
== END 2024-12-07 09:40 | disposition home or self-care (01) ==
LOC: ER 12-06 02:42 → OBGYN 12-06 02:43
PROVIDERS: Admitting Provider Family Medicine; Emergency Provider Physician Assistant; PCP Family Medicine; Visit Provider Family Medicine
DX: R55 Syncope and collapse (principal); I10 Essential (primary) hypertension; J45.909 Unspecified asthma, uncomplicated; Z87.442 Personal history of urinary calculi; Z82.49 Family history of ischemic heart disease and other diseases of the circulatory system; Z98.890 Other specified postprocedural states
CPT/HCPCS: 80053; 81001; 82570; 83735; 84156; 85025; 86140; 87086; 93005; 99285; G0378; J3475; J3490; J7121; J9999

== ENCOUNTER → 2025-04-24 19:12 | Outpatient (BNVA) | payer MEDICAID, SELFPAY | PROVIDERS: PCP Family Medicine; Visit Provider Emergency Medicine | DX: J02.9 Acute pharyngitis, unspecified (principal) | CPT/HCPCS: 87071; 87880 ==